=== PATIENT | female | born 1930 | race Caucasian/White ===

== ENCOUNTER 2016-04-28 11:48 | Inpatient (IN) ==
--- NOTE | 2016-04-28 12:00 | Emergency Department Note ---
Disposition Clinical Impression: Atrial fibrillation with RVR, NSTEMI (non-ST elevated myocardial infarction) UTI (urinary tract infection) Qualifiers: Urinary tract infection type: acute cystitis Hematuria presence: with hematuria Qualified Code(s): N30.01 - Acute cystitis with hematuria Disposition: Admitted As Inpatient Condition: Fair Time of Disposition: 15:17 Syncope HPI - General Chief Complaint: ED Fall Stated Complaint: fall Source: patient, EMS Mode of arrival: ambulatory Limitations: altered mental status Nursing Notes Reviewed: Yes Vital Signs Reviewed: Yes - History of Present Illness HPI Narrative: History source: Patient is unable to provide information for this note. Info was gathered from the patient, hospital staff, the patient's chart. History limitations: Patient condition Medications: As per nurses note 85-year-old female brought in by EMS after a fall at home. Patient was ambulating to the bathroom for a bowel movement when she became lightheaded and fell to the ground injuring her right shoulder and right knee. Patient is unable to give a history regarding her symptoms. Family was right outside the door, entered the room and did not find her to have loss of consciousness. She was calling for help. The son-in-law sat her on the toilet and she was having difficulty answering questions, felt significantly weak and fatigued. She was moving all extremities however it was difficult due to her weakness. No history of cardiac disease in the past. No history of stroke. Family members did not notice a specific deficit although they did notice swelling of the right facial area, right shoulder, right knee. - Related Data Home Medications Medication Instructions Recorded Confirmed Albuterol Sulfate [Proair Hfa] 2 puff IH Q4H PRN #0 12/02/14 04/28/16 Aspirin 81 mg PO DAILY #0 12/02/14 04/28/16 Citalopram [CeleXA] 20 mg PO DAILY #0 12/02/14 04/28/16 Diltiazem HCl [Cardizem LA] 180 mg PO DAILY #0 12/02/14 04/28/16 Fluticasone/Salmeterol [Advair 1 puff IH BID #0 12/02/14 04/28/16 500-50 Diskus] Furosemide [Lasix] 40 mg PO DAILY #0 12/02/14 04/28/16 Guaifenesin [Mucinex] 600 mg PO BID PRN #0 12/02/14 04/28/16 Levothyroxine [Synthroid] 50 mcg PO DAILY #0 12/02/14 04/28/16 Montelukast [Singulair] 10 mg PO DAILY #0 12/02/14 04/28/16 Omeprazole [PriLOSEC] 40 mg PO DAILY #0 12/02/14 04/28/16 Potassium Chloride [K-Tab ER] 20 meq PO DAILY #0 12/02/14 04/28/16 Tiotropium [Spiriva] 1 cap IH DAILY #0 12/02/14 04/28/16 Doxycycline Hyclate [Vibramycin] 100 mg PO BID 04/28/16 04/28/16 OxyCODONE/APAP 5/325 [Percocet 1 tab PO Q4HR PRN 04/28/16 04/28/16 5/325] PredniSONE 10 mg PO AD 04/28/16 04/28/16 Previous Rx's Medication Instructions Recorded Alprazolam [Xanax 0.5 MG Tablet] 0.5 mg PO TID PRN #30 tablet 12/12/14 Allergies Allergy/AdvReac Type Severity Reaction Status Date / Time Penicillins AdvReac See Verified 12/01/14 20:28 Comments Limitations: ROS unobtainable due to patients medical condition Past Medical History - Past Medical History Medical history: Reports: arthritis, atrial fibrillation, CHF, DVT, dementia, hypertension, other Surgical history: Reports: hysterectomy, other (varicose vein stripping, back surgery, laminectomy) Psychiatric history: Reports: other - Social History Smoking Status: Unknown if ever smoked Smokeless Tobacco Status: No Alcohol use: Reports: none Drug use: Reports: none Physical Exam General: Alert and in no acute distress Skin: Warm, dry, abrasion and contusion to the right shoulder and right lateral knee. Head: Normocephalic and atraumatic Neck: Supple, trachea midline and no tenderness Cardiovascular: RRR, no murmur, normal perfusion Respiratory: CTAB, no wheezing, cough, or respiratory distress Musculoskeletal: Normal strength, no tenderness, swelling or deformity GI: Soft, nontender, nondistended. Bowel sounds present Neuro: A&O to person, place, time and situation. No focal deficits noted on exam Psychiatric: cooperative and appropriate mood and affect. - General Limitations: no limitations General appearance: alert, in no apparent distress Course Vital Signs Temperature 98.5 F 04/28/16 11:54 Pulse Rate 118 04/28/16 11:54 Respiratory Rate 20 04/28/16 11:54 Blood Pressure 149/113 04/28/16 11:54 O2 Sat by Pulse Oximetry 95 04/28/16 11:54 Temperature 97.5 F L 04/28/16 17:01 Pulse Rate 100 04/28/16 18:51 Respiratory Rate 18 04/28/16 17:01 Blood Pressure 130/91 04/28/16 18:51 O2 Sat by Pulse Oximetry 99 04/28/16 18:16 Oxygen Delivery Oxygen Delivery Nasal Cannula Syncope - MDM Narrative Medical decision making narrative: Patient return of elevated troponin, and this is likely the reason for her lightheadedness, fall and fatigue. Patient also has a urinary tract infection which could be adding to her symptoms. Patient was started on heparin drip, given aspirin after a negative head CT. Patient was given ceftriaxone for treatment of urinary tract infection. She and the daughter state she does not have a allergy to penicillin. Diltiazem given for control of heart rate with an initial bolus of 10 mg and a Cardizem drip of 5 mg per hour titrating to affect. - Medical Records Medical records reviewed: Yes I reviewed the patient's medical records. - Lab Data Lab results reviewed: Yes I reviewed the patient's lab results. Result diagrams: 04/28/16 14:01 04/28/16 14:01 Lab Results 04/28/16 04/28/16 04/28/16 Range/Units 12:29 14:00 14:01 WBC 14.6 H (4.3-11.1) K/mcL RBC 5.42 H (3.82-4.97) M/mcL Hgb 14.5 (11.5-15.4) g/dL Hct 44.2 (35.3-44.9) % MCV 81.5 L (83.0-100.0) fL MCH 26.8 L (28.0-33.3) pg MCHC 32.8 (31.6-35.5) g/dL RDW 14.2 (11.5-14.5) % Plt Count 301 (140-400) K/mcL MPV 9.4 (9.4-12.4) fL Immature Gran % 1.2 (0-4) % Seg Neutrophils % 86.3 % Lymphocytes % 2.8 % Monocytes % 9.6 % Eosinophils % 0.0 % Basophils % 0.1 % Neutrophils # 12.6 H (1.6-8.9) K/mcL Lymphocytes # 0.4 L (0.6-4.6) K/mcL Monocytes # 1.4 H (0.0-1.3) K/mcL Eosinophils # 0.0 (0.0-0.6) K/mcL Basophils # 0.0 (0.0-0.2) K/mcL PT 10.4 (9.4-12.1) Seconds INR 1.0 APTT 25.0 L (26.0-36.0) Seconds Sodium (136-145) mEq/L Potassium (3.5-4.5) mEq/L Chloride (98-109) mEq/L Carbon Dioxide (19-29) mEq/L BUN (7-20) mg/dL Creatinine (0.57-1.11) mg/dL Est GFR ( Amer) (> 60) Est GFR (Non-Af Amer) (> 60) BUN/Creatinine Ratio (6-26) Glucose (70-99) mg/dL Calculated Osmolality (280-300) Calcium (8.6-10.8) mg/dL Total Bilirubin (0.2-1.2) mg/dL AST (5-34) Units/L ALT (0-55) Units/L Alkaline Phosphatase (38-126) Units/L Creatine Kinase (29-168) Units/L Troponin I (0-0.03) ng/mL Serum Total Protein (6.0-8.3) g/dL Albumin (3.5-5.0) g/dL Globulin (2.4-3.5) g/dL Albumin/Globulin Ratio (1.1-2.2) Urine Color Dark Yellow (Yellow) Urine Clarity Turbid A (Clear) Urine pH 8.5 H (5.0-8.0) pH Units Ur Specific [place] 1.017 (1.010-1.025) Urine Protein 100 H (Neg-Trace) mg/dL Urine Glucose (UA) Normal (Normal) mg/dL Urine Ketones Negative (Negative) mg/dL Urine Blood Large H (Negative) Urine Nitrite Positive A (Negative) Urine Bilirubin Negative (Negative) Urine Urobilinogen Normal (Normal) mg/dL Ur Leukocyte Esterase Large H (Negative) Urine Microscopic RBC TNTC H (0-3) per hpf Urine Microscopic WBC TNTC H (0-3) per hpf Ur Squamous Epith Cells Many H (None-Few) per lpf Calcium Oxalate Crystal Present Urine Bacteria Many H (None-Few) per hpf Hyaline Casts None Seen (None-Few) per lpf Ur Culture Indicated? YES A (NO) 04/28/16 04/28/16 Range/Units 14:01 14:01 WBC (4.3-11.1) K/mcL RBC (3.82-4.97) M/mcL Hgb (11.5-15.4) g/dL Hct (35.3-44.9) % MCV (83.0-100.0) fL MCH (28.0-33.3) pg MCHC (31.6-35.5) g/dL RDW (11.5-14.5) % Plt Count (140-400) K/mcL MPV (9.4-12.4) fL Immature Gran % (0-4) % Seg Neutrophils % % Lymphocytes % % Monocytes % % Eosinophils % % Basophils % % Neutrophils # (1.6-8.9) K/mcL Lymphocytes # (0.6-4.6) K/mcL Monocytes # (0.0-1.3) K/mcL Eosinophils # (0.0-0.6) K/mcL Basophils # (0.0-0.2) K/mcL PT (9.4-12.1) Seconds INR APTT (26.0-36.0) Seconds Sodium 136 (136-145) mEq/L Potassium 4.3 (3.5-4.5) mEq/L Chloride 98 (98-109) mEq/L Carbon Dioxide 24 (19-29) mEq/L BUN 29 H (7-20) mg/dL Creatinine 1.08 (0.57-1.11) mg/dL Est GFR ( Amer) 59 L (> 60) Est GFR (Non-Af Amer) 48 L (> 60) BUN/Creatinine Ratio 27 H (6-26) Glucose 205 H (70-99) mg/dL Calculated Osmolality 294 (280-300) Calcium 9.3 (8.6-10.8) mg/dL Total Bilirubin 1.0 (0.2-1.2) mg/dL AST 136 H (5-34) Units/L ALT 80 H (0-55) Units/L Alkaline Phosphatase 101 (38-126) Units/L Creatine Kinase 8961 H (29-168) Units/L Troponin I 1.81 H* (0-0.03) ng/mL Serum Total Protein 7.0 (6.0-8.3) g/dL Albumin 3.6 (3.5-5.0) g/dL Globulin 3.4 (2.4-3.5) g/dL Albumin/Globulin Ratio 1.1 (1.1-2.2) Urine Color (Yellow) Urine Clarity (Clear) Urine pH (5.0-8.0) pH Units Ur Specific [place] (1.010-1.025) Urine Protein (Neg-Trace) mg/dL Urine Glucose (UA) (Normal) mg/dL Urine Ketones (Negative) mg/dL Urine Blood (Negative) Urine Nitrite (Negative) Urine Bilirubin (Negative) Urine Urobilinogen (Normal) mg/dL Ur Leukocyte Esterase (Negative) Urine Microscopic RBC (0-3) per hpf Urine Microscopic WBC (0-3) per hpf Ur Squamous Epith Cells (None-Few) per lpf Calcium Oxalate Crystal Urine Bacteria (None-Few) per hpf Hyaline Casts (None-Few) per lpf Ur Culture Indicated? (NO) - Radiology Data Radiology results reviewed: Yes I reviewed the patient's radiology results. - EKG Data EKG attestation: Yes I reviewed and interpreted this EKG. EKG results narrative: ECG - interpreted by ED physician. Linda fib with RVR, no evidence of STEMI EKG #2 ECG - interpreted by ED physician. Mckeon fib with RVR
[2016-04-28 13:28] LABS: Bilirubin,Urine Negative (Negative); Blood,Urine Large (Negative); Clarity,Urine Turbid (Clear); Color,Urine Dark Yellow (Yellow); Glucose,Urine (UA) Normal (Normal); Ketones,Urine Negative (Negative); Leukocyte Esterase,Urine Large (Negative); Nitrite,Urine Positive (Negative); PH,Urine 8.5 pH Units (5.0-8.0); Protein,Urine 100 mg/dL (Neg-Trace); Specific Gravity,Urine 1.017 (1.010-1.025); Urobilinogen,Urine Normal (Normal)
[2016-04-28 13:29] LABS: Bacteria,Urine Many per hpf (None-Few); RBC,Urine TNTC per hpf (0-3); Squamous Epithelial Cell,Urine Many per lpf (None-Few); WBC,Urine TNTC per hpf (0-3)
[2016-04-28 13:38] LABS: Calcium Oxalate Crystals,Urine Present
[2016-04-28 13:39] LABS: Hyaline Casts,Urine None Seen per lpf (None-Few)
[2016-04-28 14:13] LABS: Basophils % 0.1 %; Hematocrit 44.2 % (35.3-44.9); Hemoglobin 14.5 g/dL (11.5-15.4); Immature Granulocytes % 1.2 % (0-4); Lymphocytes # 0.4 K/mcL (0.6-4.6); Lymphocytes % 2.8 %; Mean Corpuscular HGB Conc 32.8 g/dL (31.6-35.5); Mean Corpuscular Hemoglobin 26.8 pg (28.0-33.3); Mean Corpuscular Volume 81.5 fL (83.0-100.0); Mean Platelet Volume 9.4 fL (9.4-12.4); Monocytes # 1.4 K/mcL (0.0-1.3); Monocytes % 9.6 %; Neutrophils # 12.6 K/mcL (1.6-8.9); Platelet Count 301 K/mcL (140-400); Red Blood Count 5.42 M/mcL (3.82-4.97); Red Cell Distribution Width 14.2 % (11.5-14.5); Segmented Neutrophils % 86.3 %
[2016-04-28 14:23] LABS: Albumin 3.6 g/dL (3.5-5.0); Albumin/Globulin Ratio 1.1 (1.1-2.2); Calcium 9.3 mg/dL (8.6-10.8); Globulin 3.4 g/dL (2.4-3.5); Potassium 4.3 mEq/L (3.5-4.5)
[2016-04-28] MEDS ORDERED: Aspirin 81 MG TAB.CHEW PO ONE (15:05)
[2016-04-28] MEDS ORDERED: *HR* Heparin 5,000 UNIT/ML VIAL IVP PRN ×4 (15:05→17:45)
[2016-04-28] MEDS ORDERED: *HR* Heparin 5,000 UNIT/ML VIAL IVP ONE ×2 (15:05→17:45)
[2016-04-28] MEDS ORDERED: Heparin 25,000 UNIT/500 ML D5W 25,000 UNIT/500 ML MLS IVC SCH (15:15)
[2016-04-28] MEDS ORDERED: Ibuprofen 600 MG TABLET PO ONE (15:27)
[2016-04-28] MEDS ORDERED: Naloxone 0.4 MG/ML INJ IVP PRN (16:07)
[2016-04-28] MEDS ORDERED: Acetaminophen 325 MG TABLET PO PRN (16:07)
[2016-04-28] MEDS ORDERED: ALPRAZolam 0.5 MG TABLET PO PRN (16:10)
[2016-04-28 16:31] LABS: Prothrombin Time 10.4 Seconds (9.4-12.1)
--- NOTE | 2016-04-28 16:41 | Internal Med History&Physical ---
Date of Encounter: 04/28/16 Time of Encounter: 16:25 Assessment and Plan (1) Atrial fibrillation with RVR Current visit: Yes Status: Acute Continue diltiazem drip Will transition to oral Gentle IVF hydration 500cc bolus (2) Acute coronary syndrome Current visit: Yes Status: Acute Patient with known non-obstructive CAD, stress test in 2013 noted for no ischemia EKG with Afib with RVR Patient with dementia and denies chest pain , however, fall could have been due to sudden arrhythmia ON ASA at home, continue same Obtain ECHO Trend troponins Continue heparin drip at this time Per previous admission , family and cardiology had managed conservatively Cardiology consult (3) Rhabdomyolysis Current visit: Yes Status: Acute Patient with fall and multiple bruises No evidence of compartment syndrome Elevated creatinine above baseline, potassium and calcium WNL Elevated CK may also have been from [place] Gentle hydration, monitor CK, Monitor renal function Fall precautions Qualifiers: Rhabdomyolysis type: traumatic Encounter type: initial encounter Qualified Code(s): T79.6XXA - Traumatic ischemia of muscle, initial encounter (4) Fall Current visit: Yes Status: Acute PT/OT consult Fall precautions No intracranial bleed, no fractures Qualifiers: Encounter type: initial encounter Qualified Code(s): W19.XXXA - Unspecified fall, initial encounter (5) Hypothyroidism Current visit: Yes Status: Chronic Check TSH a.m Resume synthroid a.m Qualifiers: Hypothyroidism type: unspecified Qualified Code(s): E03.9 - Hypothyroidism , unspecified (6) CHF (congestive heart failure) Current visit: Yes Status: Chronic No current evidence of fluid overload, no edema, no pulmonary vascular congestion Resume home dsoe of lasix. Rpt ECHO, rest of mgt as in ACS management Qualifiers: Congestive heart failure type: diastolic Congestive heart failure chronicity: chronic Qualified Code(s): I50.32 - Chronic diastolic (congestive ) heart failure (7) Dementia Current visit: Yes Status: Chronic Qualifiers: Dementia type: unspecified type Dementia behavioral disturbance: without behavioral disturbance Qualified Code(s): F03.90 - Unspecified dementia without behavioral disturbance (8) Hypertension Current visit: Yes Status: Chronic Qualifiers: Hypertension type: essential hypertension Qualified Code(s): I10 - Essential (primary) hypertension (9) UTI (urinary tract infection) Current visit: Yes Status: Acute Follow urine culture Continue ceftriaxone Qualifiers: Urinary tract infection type: acute cystitis Hematuria presence: with hematuria Qualified Code(s): N30.01 - Acute cystitis with hematuria Internal Medicine - H&P: HPI Chief complaint: Fall Admitted From: Home Plans for Post Hospital Care: Home History of present illness: Ms. Tinajero is a 85 year old female Patient is seen at bedside Patient has dementia and is unable to provide adequate history History obtained from the [id number] who is at the bedside She is a 85-year-old female presents medical history of hypertension, diastolic CHF, atrial fibrillation not on anticoagulation due to multiple falls, hypothyroidism, COPD and dementia Patient was in her usual state of health until Wednesday when she acted more confused, family members took her to PCP. During that visit it was determined that she has a urinary tract infection and bronchitis and she was started on doxycycline by mouth. Patient was in the bathroom this morning by herself and had a fall. She was found to have some on the floor in the past from patient does not recall any of these events. As per [id number] patient denied any symptoms throughout full. Patient has a history of atrial fibrillation and prior to Tylenol primary care physician had discontinued rate control medication about a month ago the last time she took a heart rate control medication was in February 2016. At time of review patient denies any active symptoms. In previous admissions patient was [id number]. [id number] describes no change in advance directives status. Patient had an episode of diaphoresis in the ER, with heart rates in the 140s in the ER. Workup revealed elevated leukocytosis with left shift, slight elevation in BUN/ Creatinine, transaminitis, troponins at 1.81, CK 8651, EKG with A. fib with RVR ventricular rate 140, UA-UTI. Patient has been started on heparin drip and diltiazem drip. Screen for fractures including tibia and fibula x-ray, knee x- ray, Head CT, cervical spine CT is unremarkable for fractures. Chest x-ray revealed cardiomegaly with right lung scar. No pulmonary vascular congestion. Past Med Surg Social Fam HX - Past Medical History Medical history: arthritis, atrial fibrillation, CHF, DVT, dementia, hypertension, other Psychiatric history: other - Past Surgical History Surgical History: hysterectomy, other (varicose vein stripping, back surgery, laminectomy) - Social History Smoking Status: Unknown if ever smoked Smokeless Tobacco Status: No Alcohol use: none Drug use: none - Family History Father Living Status: Hx Family Cancer: Yes (colon cancer) Daughter Hx Family Autoimmune Disorders: Yes (Lupus) Internal Medicine - H&P: Meds Albuterol Sulfate [Proair Hfa] 2 puff IH Q4H PRN #0 12/02/14 [History] Aspirin 81 mg PO DAILY #0 12/02/14 [History] Citalopram [CeleXA] 20 mg PO DAILY #0 12/02/14 [History] Diltiazem HCl [Cardizem LA] 180 mg PO DAILY #0 12/02/14 [History] Fluticasone/Salmeterol [Advair 500-50 Diskus] 1 puff IH BID #0 12/02/14 [ History] Furosemide [Lasix] 40 mg PO DAILY #0 12/02/14 [History] Guaifenesin [Mucinex] 600 mg PO BID PRN #0 12/02/14 [History] Levothyroxine [Synthroid] 50 mcg PO DAILY #0 12/02/14 [History] Montelukast [Singulair] 10 mg PO DAILY #0 12/02/14 [History] Omeprazole [PriLOSEC] 40 mg PO DAILY #0 12/02/14 [History] Potassium Chloride [K-Tab ER] 20 meq PO DAILY #0 12/02/14 [History] Tiotropium [Spiriva] 1 cap IH DAILY #0 12/02/14 [History] Alprazolam [Xanax 0.5 MG Tablet] 0.5 mg PO TID PRN #30 tablet 12/12/14 [Rx] Doxycycline Hyclate [Vibramycin] 100 mg PO BID 04/28/16 [History] OxyCODONE/APAP 5/325 [Percocet 5/325] 1 tab PO Q4HR PRN 04/28/16 [History] PredniSONE 10 mg PO AD 04/28/16 [History] Allergies Penicillins Adverse Reaction (Verified 12/01/14 20:28) See Comments ROS unobtainable: due to mental status All Systems PM: A 10-system review of systems was performed and is negative for pertinent findings except as documented above in the HPI. - Constitutional Vitals: Temp Pulse Resp BP Pulse Ox 97.8 F 104 20 134/82 94 L 04/28/16 15:39 04/28/16 16:30 04/28/16 16:30 04/28/16 16:30 04/28/16 16:30 General appearance: Present: A&O X 3, pleasant, no acute distress - Head Head exam: Present: atraumatic - Eye Eye exam: Present: PERRL, conjuntiva pink, sclera anicteric - ENT ENT exam: Present: mucous membranes moist - Neck Additional comments: right neck region with small ~4cm diameter bruise - Respiratory Respiratory exam: Present: CTAB. Absent: rales, rhonchi, wheezes, tachypnea - Cardiovascular Cardiovascular exam: Present: irregular rhythm, +S1, +S2, tachycardia - GI/Abdominal GI/Abdominal exam: Present: normal bowel sounds, soft, no peritoneal signs. Absent: mass, tenderness - Extremities Exam Additional comments: All extremities are soft with no compartment syndrome Right knee with large bruise, ~10-15cm in widest diameter, Left wrist region and Right shoulder also with bruise No pedal edema - Neurological Exam Neurological exam: Present: alert, oriented X3, no focal deficits. Absent: pronater drift, facial droop, speech deficit - Skin Skin exam: Present: abrasion Internal Med - H&P Results - Labs CBC & Chem 7: 04/28/16 14:01 04/28/16 14:01
[2016-04-28] MEDS: Heparin 25,000 UNIT/500 ML D5W 25,000 UNIT/500 ML MLS IVC SCH (17:54)
[2016-04-28] MEDS: *HR* HYDROcodone/Acet 5/325 mg TABLET PO PRN (18:01)
[2016-04-28] MEDS: Budesonide/Formoterol 160/4.5 MDI IH SCH (22:52)
[2016-04-29 01:37] LABS: Basophils % 0.1 %; Hematocrit 46.1 % (35.3-44.9); Hemoglobin 15.2 g/dL (11.5-15.4); Immature Granulocytes % 1.4 % (0-4); Lymphocytes # 0.4 K/mcL (0.6-4.6); Lymphocytes % 3.6 %; Mean Corpuscular Volume 81.7 fL (83.0-100.0); Mean Platelet Volume 9.5 fL (9.4-12.4); Monocytes # 1.2 K/mcL (0.0-1.3); Monocytes % 9.5 %; Neutrophils # 10.4 K/mcL (1.6-8.9); Platelet Count 296 K/mcL (140-400); Red Blood Count 5.64 M/mcL (3.82-4.97); Red Cell Distribution Width 14.3 % (11.5-14.5); Segmented Neutrophils % 85.4 %
[2016-04-29 01:50] LABS: BUN/Creatinine Ratio 24 (6-26); Blood Urea Nitrogen 24 mg/dL (7-20); Calcium 9.2 mg/dL (8.6-10.8); Carbon Dioxide 27 mEq/L (19-29); Chloride 96 mEq/L (98-109); Glucose 175 mg/dL (70-99); Osmolality,Calculated 286 (280-300); Potassium 4.3 mEq/L (3.5-4.5); Sodium 134 mEq/L (136-145); eGFR For African Americans > 60 (> 60); eGFR For Non-African Americans 52 (> 60)
[2016-04-29] MEDS: *HR* HYDROcodone/Acet 5/325 mg TABLET PO PRN ×2 (03:38→10:08)
[2016-04-29] MEDS: Furosemide 40 MG TABLET PO SCH (10:02)
[2016-04-29] MEDS: Aspirin 81 MG TAB.CHEW PO SCH (10:02)
--- NOTE | 2016-04-29 10:26 | Cardiology Consult Note ---
Date of Encounter: 04/29/16 Time of Encounter: 10:22 Assessment and Plan (1) Elevated troponin Current Visit: Yes Status: Acute Elevated troponin 1.81, 1.57, 1.65 in setting of A-Fib with RVR, UTI, suspected rhabdomyolysis, s/p fall. Demand ischemia vs. NSTEMI. Recommend heparin gtt x 24-48 hours. Pt denies any active chest pain--reports occasional sharp midsternal pain that is not associated on exertion. Chest wall tenderness noted on palpation--likely musculoskeletal s/p fall. Echo pending. Prior echo 11/2014 EF was preserved 70%--hyperdynamic. Pt is DNR-CCA--discussed with pt and granddaughter. They do not wish to have any invasive procedures. Medical management. No statin in setting of suspected rhabdo, currently not on BB--being rate controlled on CCB. BB was stopped 02/2016 for bradycardia and fatigue. Recommend ASA 81mg daily. (2) Atrial fibrillation with RVR Current Visit: Yes Status: Acute Currently on Cardizem gtt 5mg/hr. HR at bedside 90s-low 100s. 12 hour tele AVG HR 99. Will transition to PO Cardizem CD 180mg daily. RVR in setting of UTI. CHADSVASC 5 (Age, Female, HTN, Diastolic CHF). ASA only due to frequent falls. Discussion w patient/family: The assessment and plan as outlined above was discussed with the patient and/or family members who expressed understanding and agreement. All questions were answered. Thank you for involving us in the care of your patient. Please call with any questions. I will discuss all the above with Dr. Lin and make changes as necessary. History of Present Illness Consult date: 04/29/16 Requesting physician: Rakesh Gardner Consult reason: elevated troponin Chief complaint: fall, dizziness History of present illness: Ms. Tinajero is a 85 year old female with PMH of hypertension, diastolic CHF, atrial fibrillation not on anticoagulation due to multiple falls, hypothyroidism , COPD and dementia. On Wednesday she was acting more confused and family members took her to PCP. During that visit it was determined that she has a urinary tract infection and bronchitis and she was started on doxycycline by mouth. Patient was in the bathroom yesterday morning by herself and had a fall, fell on the floor. Patient does not recall any of these events other than maybe feeling a little dizzy beforehand. PCP discontinued BB in February 2016 for fatigue and bradycardia, but has been on CCB. Pt found to be in A-Fib with RVR in ED, rate 140s, started on Cardizem gtt, troponins elevated peak 1.81, CK 8651. Patient was started on heparin drip and diltiazem drip. Screen for fractures including tibia and fibula x-ray, knee x-ray, Head CT, cervical spine CT is unremarkable for fractures. Chest x-ray revealed cardiomegaly with right lung scar. No pulmonary vascular congestion. Pt reports an occasional sharp chest pain not associated with exertion. Denies any worsening dyspnea. Past Med Surg Social Fam HX - Past Medical History Medical history: arthritis, atrial fibrillation, CHF, DVT, dementia, hypertension, other Psychiatric history: other - Past Surgical History Surgical History: hysterectomy, other (varicose vein stripping, back surgery, laminectomy) - Social History Smoking Status: Unknown if ever smoked Smokeless Tobacco Status: No Alcohol use: none Drug use: none - Family History Father Living Status: Hx Family Cancer: Yes (colon cancer) Daughter Hx Family Autoimmune Disorders: Yes (Lupus) Medications and Allergies Albuterol Sulfate [Proair Hfa] 2 puff IH Q4H PRN #0 12/02/14 [History] Aspirin 81 mg PO DAILY #0 12/02/14 [History] Citalopram [CeleXA] 20 mg PO DAILY #0 12/02/14 [History] Diltiazem HCl [Cardizem LA] 180 mg PO DAILY #0 12/02/14 [History] Fluticasone/Salmeterol [Advair 500-50 Diskus] 1 puff IH BID #0 12/02/14 [ History] Furosemide [Lasix] 40 mg PO DAILY #0 12/02/14 [History] Guaifenesin [Mucinex] 600 mg PO BID PRN #0 12/02/14 [History] Levothyroxine [Synthroid] 50 mcg PO DAILY #0 12/02/14 [History] Montelukast [Singulair] 10 mg PO DAILY #0 12/02/14 [History] Omeprazole [PriLOSEC] 40 mg PO DAILY #0 08/23/15 [History] Potassium Chloride [K-Tab ER] 20 meq PO DAILY #0 12/02/14 [History] Tiotropium [Spiriva] 1 cap IH DAILY #0 12/02/14 [History] Alprazolam [Xanax 0.5 MG Tablet] 0.5 mg PO TID PRN #30 tablet 12/12/14 [Rx] Doxycycline Hyclate [Vibramycin] 100 mg PO BID 04/28/16 [History] OxyCODONE/APAP 5/325 [Percocet 5/325] 1 tab PO Q4HR PRN 04/28/16 [History] PredniSONE 10 mg PO AD 04/28/16 [History] Allergies Penicillins Adverse Reaction (Verified 12/01/14 20:28) See Comments All Systems Review: A 10-system review of systems was performed and is negative for pertinent findings except as documented above in the HPI. - Cardiovascular Cardiovascular: as per HPI, chest pain at rest, rapid heart rate - Neurological Neurological: dizziness Physical Examination Vital Signs, Last 4 Hours Temp Pulse Resp BP Pulse Ox 04/29/16 08:00 98.3 F 92 24 109/78 100 Vital Signs Temp Pulse Resp BP Pulse Ox 04/29/16 08:00 98.3 F 92 24 109/78 100 04/29/16 04:19 100.7 F H 04/29/16 03:32 97.9 F 95 16 130/92 99 04/29/16 01:05 97.4 F L 95 14 133/82 99 04/28/16 22:55 20 95 04/28/16 21:47 98 137/92 04/28/16 21:38 97.8 F 88 17 108/83 96 04/28/16 18:51 100 130/91 04/28/16 18:34 96 114/96 04/28/16 18:16 99 04/28/16 17:01 97.5 F L 105 18 131/93 100 04/28/16 16:31 97.8 F 20 134/82 04/28/16 16:30 104 20 134/82 94 L 04/28/16 15:45 95 20 130/85 96 04/28/16 15:39 97.8 F 109 20 123/85 96 04/28/16 15:16 130 18 158/95 95 04/28/16 13:57 114 20 158/95 95 04/28/16 12:59 124 22 141/105 96 04/28/16 11:54 98.5 F 118 20 149/113 95 Intake and Output 04/28/16 04/29/16 04/29/16 23:59 07:59 15:59 Intake Total 100 / 100 125 / 125 0 / 0 Output Total 700 / 700 200 / 200 Balance -600 / -600 -75 / -75 0 / 0 Intake: IV Fluids 100 / 100 125 / 125 0 / 0 Heparin 25,000 UNIT/500 125 / 125 0 / 0 ML D5W 25,000 unit In 500 ml @ 12 UNIT/KG/HR 13. 992 mls/hr IVC .Q24H [facility] Rx#:[id number] Rocephin 1,000 MG In 100 / 100 Dextrose 5% (Minibag+) 100 ML 100 ML @ 200 mls/ hr IVPB ONCE ONE Rx#: [id number] Oral 0 / 0 Output: Catheter 700 / 700 200 / 200 Other: Stool Size Moderate Stool Consistency soft Stool Color Brown Weight 58.3 kg Blood Glucose* 147 General: Conversant, No Apparent Distress HEENT: Atraumatic, Normocephaly, Mucus Membranes Moist Neck: No JVD, Normal carotid pulses Cardiac: Other (irregularly irregular) Lungs: Normal Breath Sounds, No Wheeze, Rales, Rhonchi Neuro: Alert and responsive, No focal deficits noted Abdomen: Soft, Non-Tender Skin: No rashes noted on visualized skin Musculoskeletal: No Chest Wall Tenderness Extremities: No Clubbing, No Cyanosis, No Edema, Normal Pulses Results 04/29/16 01:24 04/29/16 01:24 Lab Results 04/28/16 04/29/16 04/29/16 20:56 01:24 01:24 WBC 12.1 H Hgb 15.2 Hct 46.1 H Plt Count 296 APTT Sodium Potassium Chloride Carbon Dioxide BUN Creatinine Glucose Calcium Troponin I 1.57 H* 1.65 H* TSH 04/29/16 04/29/16 04/29/16 01:24 01:24 01:24 WBC Hgb Hct Plt Count APTT 46.8 H D Sodium 134 L Potassium 4.3 Chloride 96 L Carbon Dioxide 27 BUN 24 H Creatinine 1.01 Glucose 175 H Calcium 9.2 Troponin I TSH 0.496 04/29/16 08:59 WBC Hgb Hct Plt Count APTT 62.0 H Sodium Potassium Chloride Carbon Dioxide BUN Creatinine Glucose Calcium Troponin I TSH Short CBC 04/29/16 04/28/16 Range/Units 01:24 14:01 WBC 12.1 H 14.6 H (4.3-11.1) K/mcL Hgb 15.2 14.5 (11.5-15.4) g/dL Hct 46.1 H 44.2 (35.3-44.9) % Plt Count 296 301 (140-400) K/mcL Neutrophils # 10.4 H 12.6 H (1.6-8.9) K/mcL BMP 04/29/16 04/28/16 Range/Units 01:24 14:01 Sodium 134 L 136 (136-145) mEq/L Potassium 4.3 4.3 (3.5-4.5) mEq/L Chloride 96 L 98 (98-109) mEq/L Carbon Dioxide 27 24 (19-29) mEq/L BUN 24 H 29 H (7-20) mg/dL Creatinine 1.01 1.08 (0.57-1.11) mg/dL Glucose 175 H 205 H (70-99) mg/dL Calcium 9.2 9.3 (8.6-10.8) mg/dL Cardiac Enzymes 04/29/16 04/28/16 04/28/16 Range/Units 01:24 20:56 14:01 Troponin I 1.65 H* 1.57 H* 1.81 H* (0-0.03) ng/mL Liver Function 04/28/16 Range/Units 14:01 Total Bilirubin 1.0 (0.2-1.2) mg/dL AST 136 H (5-34) Units/L ALT 80 H (0-55) Units/L Alkaline Phosphatase 101 (38-126) Units/L Albumin 3.6 (3.5-5.0) g/dL Urine 04/28/16 Range/Units 12:29 Urine Color Dark Yellow (Yellow) Urine Clarity Turbid A (Clear) Urine pH 8.5 H (5.0-8.0) pH Units Ur Specific [place] 1.017 (1.010-1.025) Urine Protein 100 H (Neg-Trace) mg/dL Urine Glucose (UA) Normal (Normal) mg/dL Impressions Chest X-Ray 04/28/16 12:25 IMPRESSION: Cardiomegaly with scarring or atelectasis in the medial right lung base D/ / Ty Bui MD / Ty Bui MD Interpreting Provider: Ty Bui MD Cervical Spine CT 04/28/16 12:51 IMPRESSION: No acute intracranial abnormality. No acute osseous abnormality in the cervical spine No acute osseous abnormality in the maxillofacial bones Sinus disease D/ / Osman Tronocso MD / Osman Troncoso MD Interpreting Provider: Osman Troncoso MD Head CT 04/28/16 12:51 IMPRESSION: No acute intracranial abnormality. No acute osseous abnormality in the cervical spine No acute osseous abnormality in the maxillofacial bones Sinus disease D/ / Osman Troncoso MD / Osman Troncoso MD Interpreting Provider: Osman Troncoso MD Pelvis X-Ray 04/28/16 12:51 IMPRESSION: No evidence of fracture D/ / Ty Bui MD / Ty Bui MD Interpreting Provider: Ty Bui MD Face CT 04/28/16 13:16 IMPRESSION: No acute intracranial abnormality. No acute osseous abnormality in the cervical spine No acute osseous abnormality in the maxillofacial bones Sinus disease D/ / Osman Troncoso MD / Osman Troncoso MD Interpreting Provider: Osman Troncoso MD Knee X-Ray 04/28/16 13:16 IMPRESSION: No evidence of fracture. Small joint effusion may indicate an internal derangement. 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 Osteopenia. No acute osseous abnormality of the right shoulder. 2. Moderate degenerative changes of the glenohumeral joint. 3. Calcific tendinitis of the rotator cuff. D/ / Cecilio Torres MD / Cecilio Torres MD Interpreting Provider: Cecilio Torres MD Tibia/Fibula X-Ray 04/28/16 13:16 IMPRESSION: No acute osseous abnormality of the right tibia-fibula. D/ / Orlando Stuart MD / Orlando Stuart MD Interpreting Provider: Orlando Stuart MD Active Medications Acetaminophen (Tylenol) 650 mg PO Q6HR PRN PRN Reason: Mild Pain (1-3) Stop: 10/28/16 16:08 Acetaminophen/Hydrocodone Bitart ([place]enton 5-325 Mg) 1 tab PO Q4HR PRN PRN Reason: Moderate Pain (4-6) Stop: 10/28/16 16:08 Last Admin: 04/29/16 10:08 Dose: 1 tab Alprazolam (Xanax) 0.5 mg PO TID PRN; Protocol PRN Reason: Anxiety Stop: 10/28/16 16:11 Aspirin (Aspirin) 81 mg PO DAILY [facility] Stop: 10/29/16 09:01 Last Admin: 04/29/16 10:02 Dose: 81 mg Budesonide/Formoterol Fumarate (Symbicort) 2 puff IH BIDR [facility] Stop: 10/28/16 22:01 Last Admin: 04/28/16 22:52 Dose: 2 puff Citalopram Hydrobromide (Celexa) 20 mg PO DAILY [facility] Stop: 10/29/16 09:01 Last Admin: 04/29/16 10:02 Dose: 20 mg Furosemide (Lasix) 40 mg PO DAILY [facility] Stop: 10/29/16 09:01 Last Admin: 04/29/16 10:02 Dose: 40 mg Heparin Sodium (Porcine) (Heparin) 3,500 unit 60 unit/kg (3500 unit) IVP Q6HR PRN PRN Reason: SEE COMMENTS Stop: 10/28/16 17:46 Heparin Sodium (Porcine) (Heparin) 1,700 unit 30 unit/kg (1700 unit) IVP Q6H PRN PRN Reason: SEE COMMENTS Stop: 10/28/16 17:46 Last Admin: 04/29/16 03:21 Dose: 1,700 unit Diltiazem HCl 125 mg/ Dextrose 125 mls @ 5 mls/hr IVC .Q24H [facility] PRN Reason: 5 MG/HR Stop: 10/28/16 15:31 Last Admin: 04/28/16 16:28 Dose: 5 mg/hr, 5 mls/hr Ceftriaxone Sodium 1,000 mg/ (Dextrose) 100 mls @ 200 mls/hr IVPB DAILY [facility] Stop: 10/29/16 09:01 Heparin Sodium/Dextrose (Heparin 25,000 Unit/500 Ml D5w) 25,000 unit in 500 mls @ 13.992 mls/hr IVC .Q24H [facility]; 12 UNIT/KG/HR PRN Reason: Protocol Stop: 10/28/16 17:46 Last Titration: 04/29/16 10:10 Dose: 13.63 unit/kg/hr, 15.9 mls/hr Levothyroxine Sodium (Synthroid) 50 mcg PO DAILY [facility] Stop: 10/29/16 09:01 Last Admin: 04/29/16 10:02 Dose: 50 mcg Montelukast Sodium (Singulair) 10 mg PO DAILY [facility] Stop: 10/29/16 09:01 Last Admin: 04/29/16 10:02 Dose: 10 mg Morphine Sulfate (Morphine Sulfate) 2 mg IVP Q4HR PRN PRN Reason: Severe Pain (7-10) Stop: 10/28/16 16:08 Naloxone HCl (Narcan) 0.4 mg IVP Q2MIN PRN PRN Reason: Opioid Reversal Stop: 10/28/16 16:08 Omeprazole (Prilosec) 40 mg PO DAILY [facility] Stop: 10/29/16 09:01 Last Admin: 04/29/16 10:02 Dose: 40 mg Ondansetron HCl (Zofran) 4 mg IVP Q8HR PRN PRN Reason: Nausea And Vomiting Stop: 10/28/16 16:08 Potassium Chloride (Potassium Chloride) 20 meq PO DAILY [facility] Stop: 10/29/16 09:01 Last Admin: 04/29/16 10:02 Dose: 20 meq Tiotropium [place] (Spiriva) 18 mcg IH DAILY [facility] PRN Reason: Protocol Stop: 10/29/16 09:01 - Imaging and Cardiology Echo: report reviewed (11/2014 EF 70%, severely dilated left atrium, moderately dilated right atrium, mild TR, mild-mod phtn.) - EKG Interpretation EKG results cardiology: personally reviewed (A-Fib RVR rate 140), other (12 hour tele AVG HR 99, A-Fib) Consult Discharge Plan - Plan Referrals: Raphael Galan Jr, MD [Primary Care Provider] -
--- NOTE | 2016-04-29 11:03 | Electrocardiograph Report ---
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
[2016-04-29] MEDS: Budesonide/Formoterol 160/4.5 MDI IH SCH ×2 (11:05→20:57)
[2016-04-29] MEDS: Tiotropium 18 MCG inhalation IH SCH (11:05)
--- NOTE | 2016-04-29 11:36 | ECHO - Doppler Report ---
Echocardiogram Name: Rubi Tinajero Date of Study: 04/28/2016 Date: 1930 Ht: 62.0 in Medical Record#: [id number] Age: 85 Wt: 149.0 lb Gender: Female BSA: 1.69 Order #: [id number] Location: [facility] Room #: 2NE25 Reading Physician: Leigha Blair DO Produce Field Merchandiser: Sridevi Smith Ordering Physician: Rakesh Gardner MD Primary Physician: Raphael Galan MD Indications: AFIB w/RVR, r/o NSTEMI Impressions: LVEF 50-55%. LV systolic dysfunction with regional variations. Indeterminate diastolic function. Normal right ventricular size and function. Moderate to severe, eccentric tricuspid regurgitation with possible mild prolapsing of the anterior leaflet. Mild mitral regurgitation. Mild aortic regurgitation. Mild to moderate pulmonary hypertension. The IVC is not dilated. Left Ventricular Wall Motion: Rest Echo Findings The apical inferior, mid anterior septal and mid inferior lateral herbert were hypokinetic. The apex and apical anterior herbert were not visualized. All other wall segments showed normal motion. Findings: Study Quality * Technically sub-optimal due to clinical status. Patient supine during exam. ECG Findings * Atrial fibrillation. Aortic Valve * Aortic valve not well visualized. * Mildly calcified aortic valve leaflets. * No aortic stenosis. * Mild aortic regurgitation. Tricuspid Valve * Possible mild prolapsing of the anterior leaflet. Image #48 * Moderate to severe eccentric tricuspid regurgitation. * Estimated RA pressure is 3 mmHg. * Estimated RVSP is 47 mmHg. * Mild to moderate pulmonary hypertension. Pulmonic Valve * Pulmonic valve is not well visualized. * No pulmonic stenosis. * Trace pulmonic regurgitation. Pulmonary Artery * Pulmonary artery not well visualized. Right Atrium * Moderately dilated right atrium. Mitral Valve * Mild mitral regurgitation. * Mildly calcified mitral valve leaflets. * No mitral stenosis. Left Ventricle * Indeterminate diastolic function. * Normal LV chamber size, wall thickness and function. * LVEF 50-55%. Right Ventricle * Normal right ventricular structure and function. Left Atrium * Severely dilated left atrium. IVC * The IVC is not dilated. Interatrial Septum * Interatrial septum not well evaluated. Pericardium * There is a small pericardial effusion present. Aorta * Normally sized aortic root. History Hypertension Myocardial Infarction 12/03/2014 a Previous Echo was performed. Measurements: BP: 130/ 85 2D Normal Values IVSd: 1.10 cm 0.6 - 1.0 cm LVIDd: 3.90 cm 3.7 - 5.6 cm LVPWd: .90 cm 0.6 - 1.1 cm LVIDs: 2.60 cm 1.5 - 3.6 cm %FS: 33.30 cm >25 % LA volume: 52 Mitral Valve Peak E:.68 m/sec Peak E' Lat Amadeo:5.26 cm/s Peak E' Med Amadeo:2.83 cm/s E/E' Lat Ratio:12.9 E/E' Med Ratio:24.1 Tricuspid Valve TV Regurg Peak Grad: 44.00mmHg TV Regurg Peak Amadeo: 3.33m/sec Updated by Leigha Blair on 04/29/2016 11:28:20 AM electronically signed on 04/29/2016 11:31:48 AM with status of Final Wall Motion Allen: 1=Normal, 2=Hypokinesis, 3=Akinesis, 4=Dyskinesis, 5=Aneurysmal, 6=Hyperkinetic, X=Not Visualized (Blank)=Missing
[2016-04-29] MEDS: Diltiazem CD (24hr) 180 MG CAPSULE PO SCH (11:47)
--- NOTE | 2016-04-29 13:12 | Electrocardiograph Report ---
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
[2016-04-29] MEDS: *HR* Morphine 2 MG/ML SYRINGE IVP PRN (13:50)
[2016-04-29] MEDS: *HR* OxyCODONE/APAP 5/325 TABLET PO PRN ×2 (14:43→20:58)
[2016-04-29] MEDS ORDERED: DILTIAZEM HCL 180 MG PO SCH (16:10)
[2016-04-29] MEDS ORDERED: *HR* Metoprolol 5 MG/5 ML VIAL IVP ONE (16:13)
--- NOTE | 2016-04-29 16:38 | Internal Med Progress Note ---
<Sam Mcmullen - Last Filed: 04/29/16 16:33> Date of Encounter: 04/29/16 Time of Encounter: 09:30 - Assessment and plan (1) Fall Current Visit: Yes Status: Acute Assessment and plan: Patient is an elderly female who is supposed to be using her walker or cane at home but has poor compliance. She has underlying dementia and currently lives alone with frequent checkup by family members. She was found down after a mechanical fall in her bathroom for unknown length of time. Patient is found to have atrial fibrillation with RVR, urinary tract infection and NSTEMI. Family member states that the patient has had increased confusion over the last week. Her fall is likely secondary to urinary tract infection and associated atrial fibrillation with RVR and NSTEMI. - Multiple x-ray studies were reviewed without knee findings of osseous fractures. Plan: -Patient currently on fall precautions - CT of the head was evaluated which was a poor study but no signs of acute intracranial bleed or midline shift. - Patient will likely need social service agency director evaluation for rehabilitation placement - PT/OT evaluation Qualifiers: Encounter type: initial encounter Qualified Code(s): W19.XXXA - Unspecified fall, initial encounter (2) NSTEMI (non-ST elevated myocardial infarction) Current Visit: Yes Status: Acute Assessment and plan: Patient was found to have elevated troponins 1.8-1.53 and known coronary artery disease. Patient was started on heparin IV. The patient is without left -sided chest pain, chest pressure or pain radiation. EKGs reviewed. Cardiology was consult to evaluate the patient recommending medical management at this time. Plan: - Continue heparin IV for total 48 hours - Continue aspirin, statin, beta shruthi to maximize cardiac therapy. (3) Elevated troponin Current Visit: Yes Status: Acute Assessment and plan: Elevated troponins from 1.8-1.5. Previous troponins do not show a trend of elevation. Cardiology was consulted and has evaluated the patient. Plan as above. (4) Atrial fibrillation with RVR Current Visit: Yes Status: Acute Assessment and plan: The patient is a known history of atrial fibrillation for which she takes diltiazem LA 180 mg by mouth daily. Patient was admitted with atrial fibrillation RVR likely exacerbation of atrial fibrillation secondary to urinary tract infection. She is currently on home dose of Cardizem and treating underlying medical conditions. Heart rate is currently controlled. Plan: - Continue Cardizem CD 180 mg by mouth daily. - Continue cardiac monitoring. - Patient is not on warfarin therapy at home likely secondary to risk of fall. Currently patient is on heparin IV for NSTEMI. (5) Rhabdomyolysis Current Visit: Yes Status: Acute Assessment and plan: Patient has elevated CK at the time of admission with preserved renal function. Elevated creatinine kinase likely secondary to fall at home. Plan: - Continue to monitor renal function. -Gentle rehydration in an elderly patient. Qualifiers: Rhabdomyolysis type: traumatic Encounter type: initial encounter Qualified Code(s): T79.6XXA - Traumatic ischemia of muscle, initial encounter (6) UTI (urinary tract infection) Current Visit: Yes Status: Acute Assessment and plan: Patient found to have urinary tract infection currently on ceftriaxone. Patient had increased confusion at home, mechanical fall and rapid ventricular rates. Plan: - Continue ceftriaxone for treatment of UTI. -Culture pending Qualifiers: Urinary tract infection type: acute cystitis Hematuria presence: with hematuria Qualified Code(s): N30.01 - Acute cystitis with hematuria (7) Dementia Current Visit: Yes Status: Chronic Assessment and plan: Patient has underlying dementia with increased confusion prior to admission. Continue to monitor mental status. Qualifiers: Dementia type: unspecified type Dementia behavioral disturbance: without behavioral disturbance Qualified Code(s): F03.90 - Unspecified dementia without behavioral disturbance (8) Hypothyroidism Current Visit: Yes Status: Chronic Assessment and plan: Patient has known hypothyroidism, continue home dose of 50 mcg by mouth daily levothyroxine Qualifiers: Hypothyroidism type: unspecified Qualified Code(s): E03.9 - Hypothyroidism , unspecified (9) DVT prophylaxis Current Visit: No Status: Acute Assessment and plan: Patiently currently on IV heparin. - Subjective Interval history: Mrs. Tinajero 85-year-old female has been seen and evaluated patient bedside. She is alert and interactive in no acute distress. Her daughters at bedside, to provide support and assist in patient history. Patient says that she is still having pain in her right shoulder and right lower extremity status post fall at home. She said that she nearly passed out when she fell at home and a tiny space but is not clear and the events leading up or after. She does have a history of dementia which is provided by her daughter. She denies any headaches since that she has some mild blurry vision but is unsure if this is new. She says she did have by mouth intake today and that her catheter is irritating. She denies any nausea or vomiting, diarrhea or constipation, chest pain or palpitations. She has pain when she tries to move her right shoulder since the fall. She is able to move her right hand and forearm with limited motion of the right shoulder retains sensation and movement in her right distal upper extremity. - Constitutional Vitals: Temp Pulse Resp BP Pulse Ox 97.4 F L 102 16 125/66 97 04/29/16 15:00 04/29/16 15:00 04/29/16 15:00 04/29/16 15:00 04/29/16 15:00 General appearance: Present: A&O X 3, pleasant, no acute distress - Head Head exam: Present: atraumatic, normocephalic - Eye Eye exam: Present: EOMI, PERRL - ENT ENT exam: Present: mucous membranes moist - Neck Neck exam general surgery: Present: supple, trachea midline - Respiratory Respiratory exam: Present: CTAB - Cardiovascular Cardiovascular exam: Present: irregular rhythm - GI/Abdominal GI/Abdominal exam: Present: normal bowel sounds, soft. Absent: tenderness - Extremities Exam Additional comments: Patient has contusion to the anterior right shoulder, right lateral proximal fibula. Patient has limited/restricted active motion in her right upper extremity secondary to pain with attempted movement. She is able to move all other extremities without restriction. There is no sign of deformity to her right upper extremity or right lower extremity. - Neurological Exam Neurological exam: Present: alert, no focal deficits. Absent: speech deficit - Psychiatric Psychiatric exam: Present: normal affect, normal mood - Skin Skin exam: Present: warm Internal Medicine: Result - Labs CBC & Chem 7: 04/29/16 01:24 04/29/16 01:24 Labs: Short CBC 04/29/16 Range/Units 01:24 WBC 12.1 H (4.3-11.1) K/mcL Hgb 15.2 (11.5-15.4) g/dL Hct 46.1 H (35.3-44.9) % Plt Count 296 (140-400) K/mcL Neutrophils # 10.4 H (1.6-8.9) K/mcL BMP 04/29/16 01:24 Sodium 134 L Potassium 4.3 Chloride 96 L Carbon Dioxide 27 BUN 24 H Creatinine 1.01 Glucose 175 H Calcium 9.2 Cardiac Enzymes 04/28/16 04/29/16 Range/Units 20:56 01:24 Troponin I 1.57 H* 1.65 H* (0-0.03) ng/mL - ABG Interpretation ABG results: PT/INR, D-dimer PT 10.4 Seconds (9.4-12.1) 04/28/16 14:00 Consult Discharge Plan - Plan Referrals: Raphael Galan Jr, MD [Primary Care Provider] - <Osman Scott - Last Filed: 04/30/16 19:59> - Assessment and plan (1) NSTEMI (non-ST elevated myocardial infarction) Current Visit: Yes Status: Acute (2) Dementia Current Visit: Yes Status: Chronic Qualifiers: Dementia type: unspecified type Dementia behavioral disturbance: without behavioral disturbance Qualified Code(s): F03.90 - Unspecified dementia without behavioral disturbance (3) Atrial fibrillation Current Visit: No Status: Chronic Qualifiers: Atrial fibrillation type: chronic Qualified Code(s): I48.2 - Chronic atrial fibrillation (4) Hypothyroidism Current Visit: Yes Status: Chronic Qualifiers: Hypothyroidism type: unspecified Qualified Code(s): E03.9 - Hypothyroidism , unspecified (5) Hypertension Current Visit: Yes Status: Chronic Qualifiers: Hypertension type: essential hypertension Qualified Code(s): I10 - Essential (primary) hypertension - Constitutional Vitals: Temp Pulse Resp BP Pulse Ox 97.6 F 83 17 114/79 97 04/30/16 15:52 04/30/16 15:52 04/30/16 15:52 04/30/16 15:52 04/30/16 15:52 Internal Medicine: Result - Labs CBC & Chem 7: 04/30/16 01:27 04/30/16 01:27 Labs: Short CBC 04/30/16 Range/Units 01:27 WBC 13.0 H (4.3-11.1) K/mcL Hgb 12.8 D (11.5-15.4) g/dL Hct 39.5 (35.3-44.9) % Plt Count 289 (140-400) K/mcL Neutrophils # 10.3 H (1.6-8.9) K/mcL BMP 04/30/16 01:27 Sodium 137 Potassium 4.8 H Chloride 99 Carbon Dioxide 27 BUN 27 H Creatinine 1.06 Glucose 141 H Calcium 9.0 - ABG Interpretation ABG results: PT/INR, D-dimer PT 10.4 Seconds (9.4-12.1) 04/28/16 14:00 - Attending Attestation I examined this patient and my medical decision-making was reviewed with the Resident Physician on 04/29/16. I agree with the documented findings, disposition and treatment plan as described except to the extent set forth below. Ms. Tinajero is currently admitted for acute NSTEMI. She is at moderate to high risk due to potential cardiac compromise. Ms. Tinajero is complaining of pain in her arm. No chest pain or dyspnea. No GI symptoms. Exam Alert. Comfortable. Heart irreg Lungs clear I/P 1. Acute NSTEMI 2. Dementia Further diagnoses and plan as above.
[2016-04-29] MEDS ORDERED: *HR* LORazepam 2 MG/ML VIAL IVP ONE (23:50)
[2016-04-30 01:51] LABS: Basophils % 0.2 %; Eosinophils % 0.1 %; Hematocrit 39.5 % (35.3-44.9); Hemoglobin 12.8 g/dL (11.5-15.4); Immature Granulocytes % 2.2 % (0-4); Immature Platelets 3.8 % (1.1-6.1); Lymphocytes # 0.8 K/mcL (0.6-4.6); Mean Corpuscular HGB Conc 32.4 g/dL (31.6-35.5); Mean Corpuscular Hemoglobin 27.3 pg (28.0-33.3); Mean Corpuscular Volume 84.2 fL (83.0-100.0); Mean Platelet Volume 9.8 fL (9.4-12.4); Monocytes # 1.7 K/mcL (0.0-1.3); Monocytes % 12.7 %; Neutrophils # 10.3 K/mcL (1.6-8.9); Platelet Count 289 K/mcL (140-400); Red Blood Count 4.69 M/mcL (3.82-4.97); Red Cell Distribution Width 14.5 % (11.5-14.5); Segmented Neutrophils % 78.8 %
[2016-04-30 02:02] LABS: BUN/Creatinine Ratio 25 (6-26); Blood Urea Nitrogen 27 mg/dL (7-20); Carbon Dioxide 27 mEq/L (19-29); Chloride 99 mEq/L (98-109); Glucose 141 mg/dL (70-99); Osmolality,Calculated 291 (280-300); Potassium 4.8 mEq/L (3.5-4.5); Sodium 137 mEq/L (136-145); eGFR For African Americans > 60 (> 60); eGFR For Non-African Americans 50 (> 60)
[2016-04-30] MEDS ORDERED: *HR* LORazepam 2 MG/ML VIAL IVP ONE (02:18)
[2016-04-30] MEDS: Heparin 25,000 UNIT/500 ML D5W 25,000 UNIT/500 ML MLS IVC SCH (03:43)
[2016-04-30] MEDS: *HR* OxyCODONE/APAP 5/325 TABLET PO PRN ×3 (06:21→21:43)
[2016-04-30] MEDS: Tiotropium 18 MCG inhalation IH SCH (08:15)
[2016-04-30] MEDS: Budesonide/Formoterol 160/4.5 MDI IH SCH ×2 (08:15→20:00)
--- NOTE | 2016-04-30 08:38 | Internal Med Progress Note ---
<Sam Mcmullen - Last Filed: 04/30/16 15:05> Date of Encounter: 04/30/16 Time of Encounter: 08:38 - Assessment and plan (1) Fall Current Visit: Yes Status: Acute Assessment and plan: Patient is an elderly female who is supposed to be using her walker or cane at home but has poor compliance. She has underlying dementia and currently lives alone with frequent checkup by family members. She was found down after a mechanical fall in her bathroom for unknown length of time. Patient is found to have atrial fibrillation with RVR, urinary tract infection and NSTEMI. Family member states that the patient has had increased confusion over the last week. Her fall is likely secondary to urinary tract infection and associated atrial fibrillation with RVR and NSTEMI. - Multiple x-ray studies were reviewed without knee findings of osseous fractures. Plan: -Patient currently on fall precautions - Patient will likely need addiction social worker evaluation for rehabilitation placement - PT/OT evaluation Qualifiers: Encounter type: initial encounter Qualified Code(s): W19.XXXA - Unspecified fall, initial encounter (2) NSTEMI (non-ST elevated myocardial infarction) Current Visit: Yes Status: Acute Assessment and plan: Patient was found to have elevated troponins 1.8-1.53 and known coronary artery disease. Patient was started on heparin IV. The patient is without left -sided chest pain, chest pressure or pain radiation. EKGs reviewed. Cardiology to perform coronary catherization today. Plan: - Continue heparin IV for total 48 hours - Continue aspirin, statin, beta shruthi to maximize cardiac therapy. - NPO for procedure. (3) Elevated troponin Current Visit: Yes Status: Acute Assessment and plan: Elevated troponins from 1.8-1.5. Previous troponins do not show a trend of elevation. Cardiology was consulted and has evaluated the patient. Plan as above. (4) Atrial fibrillation with RVR Current Visit: Yes Status: Acute Assessment and plan: The patient is a known history of atrial fibrillation for which she takes diltiazem LA 180 mg by mouth daily. Patient was admitted with atrial fibrillation RVR likely exacerbation of atrial fibrillation secondary to urinary tract infection. She is currently on home dose of Cardizem and treating underlying medical conditions. Heart rate is currently controlled. Plan: - Continue Cardizem CD 180 mg by mouth daily. - Continue cardiac monitoring. - Patient is not on warfarin therapy at home likely secondary to risk of fall. Currently patient is on heparin IV for NSTEMI. (5) Rhabdomyolysis Current Visit: Yes Status: Acute Assessment and plan: Patient has elevated CK at the time of admission with preserved renal function. Elevated creatinine kinase likely secondary to fall at home. Plan: - Continue to monitor renal function. -Gentle rehydration in an elderly patient. Qualifiers: Rhabdomyolysis type: traumatic Encounter type: initial encounter Qualified Code(s): T79.6XXA - Traumatic ischemia of muscle, initial encounter (6) UTI (urinary tract infection) Current Visit: Yes Status: Acute Assessment and plan: Patient found to have urinary tract infection currently on ceftriaxone. Patient had increased confusion at home, mechanical fall and rapid ventricular rates. Plan: - Continue ceftriaxone for treatment of UTI. - Culture Demonstrates E. coli for which is sensitive to Ceftriaxone. Qualifiers: Urinary tract infection type: acute cystitis Hematuria presence: with hematuria Qualified Code(s): N30.01 - Acute cystitis with hematuria (7) Dementia Current Visit: Yes Status: Chronic Assessment and plan: Patient has underlying dementia with increased confusion prior to admission. Continue to monitor mental status. Qualifiers: Dementia type: unspecified type Dementia behavioral disturbance: without behavioral disturbance Qualified Code(s): F03.90 - Unspecified dementia without behavioral disturbance (8) Hypothyroidism Current Visit: Yes Status: Chronic Assessment and plan: Patient has known hypothyroidism, continue home dose of 50 mcg by mouth daily levothyroxine Qualifiers: Hypothyroidism type: unspecified Qualified Code(s): E03.9 - Hypothyroidism , unspecified (9) DVT prophylaxis Current Visit: No Status: Acute Assessment and plan: Patiently currently on IV heparin. - Subjective Interval history: Mrs. Tinajero 85-year-old female has been seen and evaluated patient bedside. She is alert and interactive in no acute distress. She complains of right shoulder pain which is slightly improved compared to admission. She continues to have some blurry vision that was present before admission. She says she had a bad night but is unsure of the events. She was moved from the back of the unit to next to the nursing station as she had sun downers. She continues to deny any chest pain, chest pressure, palpitations, abdominal pain or urinary discomfort/ burning. - Constitutional Vitals: Temp Pulse Resp BP Pulse Ox 98.8 F 98 20 116/75 96 04/30/16 07:52 04/30/16 07:52 04/30/16 08:15 04/30/16 07:52 04/30/16 08:15 General appearance: Present: A&O X 3, pleasant, no acute distress - Head Head exam: Present: atraumatic, normocephalic - Eye Eye exam: Present: PERRL, conjuntiva pink, sclera anicteric - ENT ENT exam: Present: mucous membranes moist - Neck Neck exam general surgery: Present: supple, trachea midline - Respiratory Respiratory exam: Present: CTAB - Cardiovascular Cardiovascular exam: Present: irregular rhythm - GI/Abdominal GI/Abdominal exam: Present: normal bowel sounds, soft. Absent: tenderness - Extremities Exam Extremities exam: Present: warm, radial pulses palpable and symetrical Additional comments: patient has a large contusion with eccymosis on the anterior right shoulder and right lateral fibula. patient has tenderness to palpation of the right shoulder and proximal upper extremity. - Neurological Exam Neurological exam: Present: alert - Psychiatric Psychiatric exam: Present: normal affect, normal mood - Skin Skin exam: Present: warm Internal Medicine: Result - Labs CBC & Chem 7: 04/30/16 01:27 04/30/16 01:27 Labs: Short CBC 04/30/16 Range/Units 01:27 WBC 13.0 H (4.3-11.1) K/mcL Hgb 12.8 D (11.5-15.4) g/dL Hct 39.5 (35.3-44.9) % Plt Count 289 (140-400) K/mcL Neutrophils # 10.3 H (1.6-8.9) K/mcL BMP 04/30/16 01:27 Sodium 137 Potassium 4.8 H Chloride 99 Carbon Dioxide 27 BUN 27 H Creatinine 1.06 Glucose 141 H Calcium 9.0 - ABG Interpretation ABG results: PT/INR, D-dimer PT 10.4 Seconds (9.4-12.1) 04/28/16 14:00 Consult Discharge Plan - Plan Referrals: Raphael Galan Jr, MD [Primary Care Provider] - <Osman Scott - Last Filed: 04/30/16 20:03> - Assessment and plan (1) NSTEMI (non-ST elevated myocardial infarction) Current Visit: Yes Status: Acute (2) Dementia Current Visit: Yes Status: Chronic Qualifiers: Dementia type: unspecified type Dementia behavioral disturbance: without behavioral disturbance Qualified Code(s): F03.90 - Unspecified dementia without behavioral disturbance (3) Atrial fibrillation Current Visit: No Status: Chronic Qualifiers: Atrial fibrillation type: chronic Qualified Code(s): I48.2 - Chronic atrial fibrillation (4) Hypothyroidism Current Visit: Yes Status: Chronic Qualifiers: Hypothyroidism type: unspecified Qualified Code(s): E03.9 - Hypothyroidism , unspecified (5) Hypertension Current Visit: Yes Status: Chronic Qualifiers: Hypertension type: essential hypertension Qualified Code(s): I10 - Essential (primary) hypertension - Constitutional Vitals: Temp Pulse Resp BP Pulse Ox 97.6 F 83 17 114/79 97 04/30/16 15:52 04/30/16 15:52 04/30/16 15:52 04/30/16 15:52 04/30/16 15:52 Internal Medicine: Result - Labs CBC & Chem 7: 04/30/16 01:27 04/30/16 01:27 Labs: Short CBC 04/30/16 Range/Units 01:27 WBC 13.0 H (4.3-11.1) K/mcL Hgb 12.8 D (11.5-15.4) g/dL Hct 39.5 (35.3-44.9) % Plt Count 289 (140-400) K/mcL Neutrophils # 10.3 H (1.6-8.9) K/mcL BMP 04/30/16 01:27 Sodium 137 Potassium 4.8 H Chloride 99 Carbon Dioxide 27 BUN 27 H Creatinine 1.06 Glucose 141 H Calcium 9.0 - ABG Interpretation ABG results: PT/INR, D-dimer PT 10.4 Seconds (9.4-12.1) 04/28/16 14:00 - Attending Attestation I examined this patient and my medical decision-making was reviewed with the Resident Physician on 04/30/16. I agree with the documented findings, disposition and treatment plan as described except to the extent set forth below. Ms. Tinajero is currently admitted for acute NSTEMI. She remains moderate to high risk due to potential of worsening cardiac issues. Ms. Tinajero is to have cardiac cath today. Her only complaint is pain in her arm and leg. No chest pain. Exam Alert. Comfortable Heart irreg Lungs no wheeze Abd soft I/P 1. Acute NSTEMI - cath today 2. a fib 3. dementia Further diagnoses and plan as above.
--- NOTE | 2016-04-30 09:13 | Event Note ---
Date of Encounter: 04/30/16 Time of Encounter: 08:30 - Cardiology Event Note Seen and examined. Alert and oriented x3. Denies chest pain or events overnight. Patient and family want to proceed with LHC for mgmt of NSTEMI & new SWMA described on echocardiogram. Alternatives, risks, and benefits discussed--all are agreeable to proceed. Madyson (POA) granddaughter at bedside. Discussed with Dr. Rai, patient okay to have light breakfast. Plan for LHC this afternoon. Further recommendations pending LHC. Discussed and reviewed with Dr. Lin.
[2016-04-30] MEDS: Aspirin 81 MG TAB.CHEW PO SCH (10:09)
[2016-04-30] MEDS: Furosemide 40 MG TABLET PO SCH (10:09)
[2016-04-30] MEDS: Diltiazem CD (24hr) 180 MG CAPSULE PO SCH (10:09)
[2016-04-30] MEDS ORDERED: Verapamil 5 MG/2 ML VIAL ONE (13:37)
[2016-04-30] MEDS ORDERED: *HR* FentaNYL (PF) 100 MCG/2 ML VIAL ONE (13:37)
[2016-04-30] MEDS ORDERED: *HR* Midazolam HCl 2 MG/2 ML VIAL ONE (13:37)
[2016-04-30] MEDS ORDERED: *HR* Heparin 10,000 UNIT/10 ML VIAL ONE (13:38)
[2016-04-30] MEDS ORDERED: 0.9 % Sodium Chloride 1,000 ML ONE ×2 (13:38→13:53)
[2016-04-30] MEDS ORDERED: Heparin 1,000 UNITS/500 mL NS 500 ML ONE (13:38)
[2016-04-30] MEDS ORDERED: Nitroglycerin 1,000 MCG/10 ML VIAL IV ONE (13:38)
--- NOTE | 2016-04-30 14:01 | Pre-Sedation Evaluation ---
Pre-sedation evaluation - Pre-sedation checklist Date of procedure: 04/30/16 Procedure: heart cath Recent Vitals: Last Vital Signs Temp 98 F 04/30/16 11:20 Pulse 95 04/30/16 11:20 Resp 16 04/30/16 11:20 BP 111/65 04/30/16 11:20 Pulse Ox 96 04/30/16 11:20 H&P (including ROS) documented in medical record: Yes Previous reaction to sedatives/anesthetics: No Dietary Status: No solid food in preceding 4 hrs and no liquid in preceding 2 hrs Dentition: dentures removed ASA Classification *see protocol: CLASS II-Mild systemic disease Plan of Care: Pt appropriate candidate for procedure/moderate/conscious sedation , Risks/benefits of procedure/sedation discussed w/ patient/family
--- NOTE | 2016-04-30 14:31 | Invasive Diagnostic Lab Proc ---
Name: Rubi Tinajero Date of Study: 04/30/2016 Date: 1930 Ht: 59.8in Medical Record#: [id number] Age: 85 Wt: 128.53lb Gender: Female BSA: 1.54 Order #: [id number] BMI: 25.23 Physicians Procedure Physician: Darius Rai MD, [facility] Referring MD: Referring MD: Staff Name Position Time In Yahaira Cox RT (R) Monitor 01:59 PM Bryan Wilkes RN Scrub 02:00 PM Mely Rodriguez RN Revenue Integrity Analyst 02:00 PM Indications Indication Non-Stemi Procedures Performed Procedure L HRT ARTERY/VENTRICLE ANGIO Pre-Procedure Checklist Informed consent is complete signed and on chart. H\\T\\P is on chart. ID band is on and ID verified with patient. Patient NPO for procedure The procedure was described for the patient and questions were answered. Blood Pressure: 130/76 ECG is on chart. Rhythm: Atrial Fibrillation Plan of Care Patient will tolerate the procedure without complications. Adequate level of comfort will be maintained. Hemodynamics will remain stable Patient will recover from procedure without complications. Respiratory function will be maintained. Cardiac rhythm will remain stable. Patient temperature will be maintained. Patient and/or family have verbalized understanding of the procedure. Patient Education Chief Complaint/Reason for Test: Cardiac Cath Developmental Category: Geriatric (65+ years) Developmentally Appropriate for Age: Yes Learning Barriers: None Education Needs: Procedure Education Method: Verbal Information Taught: Cardiac Cath Educational Evaluation: Able to repeat information Intravenous Access Time IV Size Location DC'd Fluid/Drip Rate Units RN 02:01 PM 22g 1" Patent On Arrival Lt Hand 0.9NaCl 25 ml/hr Mely Rodriguez RN Allergies Penicillins Vital Signs Time BP (mmHg) HR (bpm) O2 Sat. RR (bpm) LOC 02:01 PM / % 5 = Fully awake and oriented or at pre-proc level 02:01 PM / % 4 = Oriented but drowsy 02:02 PM 130 / 76 91 100 % 19 02:07 PM 130 / 77 89 100 % 21 02:12 PM 127 / 74 99 98 % 17 02:17 PM 128 / 65 87 99 % 14 Procedural Medications Time Medication Dose Units Method Given By 02:01 PM Oxygen 6 L/min simple face mask Mely Rodriguez RN 02:03 PM Versed 1 mg Intravenous Mely Rodriguez RN 02:03 PM Fentanyl 25 mcg Intravenous Mely Rodriguez RN 02:05 PM Lidocaine 2% 15 ml Subcutaneous Darius Rai MD, [facility] ASA Classification: CLASS II- Mild systemic disease (i.e. well-controlled diabetes, hypertension, asthma, cigarette smoking) Cintia Score Preprocedure Postprocedure Activity 2- Moves 4 extremities sustained head lift Activity 2- Moves 4 extremities sustained head lift Circulation 2- SBP +/= 20 points of pre-anesthetic level Circulation 2- SBP +/= 20 points of pre-anesthetic level Consciousness 2- Awake and alert oriented x 3 Consciousness 2- Awake and alert oriented x 3 O2 Saturation 2- Able to maintain O2 satruation of 92% on room air O2 Saturation 2- Able to maintain O2 satruation of 92% on room air Respiratory 2- Able to deep breathe and cough well Respiratory 2- Able to deep breathe and cough well Total Score 10 Total Score 10 Contrast Agent: Isovue Diagnostic Contrast: 47 ml Total Contrast: 47 ml Fluoro Dose: 121 mGy Procedure Log Time Note Enter By 01:44 PM CathStat 01:48 PM Pt arrived to labor relations or personnel negotiator 2 at 13:48 twilson 01:48 PM CathStat 01:49 PM Physician arrived 13:49 twilson 01:49 PM Meet and greet completed twilson 01:49 PM Sign in performed according to hospital policy. twilson 01:49 PM Procedure start 13:49 twilson 01:59 PM Vitals capture started with the following parameters, Patient=Adult, Interval=5 min, Initial Zjkbcrlq=421 mmHg, Deflation Rate=5 mmHg, Cuff placed on Right Arm 01:59 PM Recorded ECG: HR=85 Condition=Condition 1 02:00 PM Yahaira Cox (R) Position: Monitor Time in: 13:59 twilson 02:00 PM Bryan Wilkes RN Position: Scrub Time in: 14:00 twilson 02:00 PM Mely Rodriguez RN Position: Revenue Integrity Analyst Time in: 14:00 twilson 02:00 PM Patient charges- Angio tray pack, Navilyst 3mm J, Pulse Oximetry and ACIST tubing and transducer twilson 02:00 PM Case Delayed no twilson 02:00 PM Hair removed from procedure site in procedure lab using clippers. Bilateral groin prepped with Chloraprep by Yahaira Cox (R) then patient draped. Skin intact. tw: PM ASA Class CLASS II- Mild systemic disease (i.e. well-controlled diabetes, hypertension, asthma, cigarette smoking) : PM Time: 14: Oxygen on at 6 L/min per simple face mask by Mely Rodriguez RN : PM Time: 14: Patient comfortable and pain free: Yes PM Time: 14:LOC: 5 = Fully awake and oriented or at pre-proc level twilson : PM Vitals capture stopped. : PM Vitals capture started with the following parameters, Patient=Adult, Interval=5 min, Initial Kowhsxnd=773 mmHg, Deflation Rate=5 mmHg, Cuff placed on Right Arm : PM HR=91 bpm, JWKJ=794/76 mmhg, PxY9=766.0 %, Resp=19 B/min 02:03 PM Time: 14:03 Versed 1 mg Intravenous Given by Mely Rodriguez RN lilian : PM Time: 14:03 Fentanyl 25 mcg Intravenous Given by Mely Rodriguez RN [facility] : PM Time out performed according to hospital policy tw: PM Time: 14:05 15 ml Lidocaine 2% to right groin Subcutaneous Given by Darius Rai MD, [facility] tw: PM Pressure channel 1 zeroed. 02:07 PM Access obtained by percutaneous puncture. 5Fr 10cm Terumo [place] sheath placed in right Femoral artery. [id number] twilson 02: PM HR=89 bpm, QLIU=828/77 mmhg, MnH4=190.0 %, Resp=21 B/min 02: PM 5Fr FL 4 catheter inserted over the wire [facility] twilson : PM Wire removed, intact. twilson : PM Recorded Pressure: Ao, HR=84, Condition=Condition 1 (Aorta) Ao 99/68/83 02:08 PM LCA angiography performed in multiple views. tw: PM Lesion found in LMCA. Pre Stenosis: 20 Pre PARIS Flow: 3: Complete and Brisk Flow/Perfusion twilson 02:09 PM Left Main Coronary Artery with 20% stenosis twilson 02: PM Wire reinserted and catheter removed. tw 02: PM 5Fr FR 4 catheter inserted over the wire [facility] twilson 02:10 PM Wire removed, intact. twilson 02:10 PM RCA angiography performed in multiple views. twilson 02:10 PM Coronary Dominance: right twilson 02:10 PM Recorded Pressure: Ao, HR=83, Condition=Condition 1 (Aorta) Ao 95/76/86 02:12 PM Catheter removed twilson 02:12 PM 5Fr Pigtail catheter inserted over the wire DNC twilson 02:12 PM HR=99 bpm, YSUB=274/74 mmhg, SpO2=98.0 %, Resp=17 B/min 02:12 PM Catheter selectively placed in left ventricle twilson 02:12 PM Wire removed, intact. twilson 02:13 PM Bolus angiogram of left Ventricle complete: 10 ml/sec for a total of 34 mls twilson 02:13 PM Pressure channel 1 zero failed. 02:13 PM Pressure channel 1 zero failed. 02:13 PM Pressure channel 1 zeroed. 02:13 PM Recorded Pressure: LV, HR=81, Condition=Condition 1 (Left Ventricle) LV 100/17/12 02:13 PM Recorded Pressure: LV, Ao, HR=84, Condition=Condition 1 (Left Ventricle) LV 95/11/11, (Aorta) Ao 103/55/76 02:14 PM Catheter removed twilson 02:14 PM Bolus angiogram of right Femoral complete: 2 ml/sec for a total of 4 mls twilson 02:15 PM Lesion found in Ostiall RCA. Pre Stenosis: 50 Pre PARIS Flow: 3: Complete and Brisk Flow/Perfusion twilson 02:15 PM Right Coronary, Right Posterior Descending Arteries with Right Posterolateral and Acute Marginal branches with 50 % stenosis. If graft is supplying this area, % stenosis twilson 02:15 PM Procedure completed at 14:15 twilson 02:16 PM Time: 14:01LOC: 4 = Oriented but drowsy twilson 02:16 PM Time: 14:01 Patient comfortable and pain free: Yes twilson 02:16 PM Sign out completed: Radiation Dose 121.23 mGy Fluoro Time: 1.1 Isovue 370 - 200ml contrast 47 ml given by Darius Rai MD, [facility]. Complications: NoneCardiac Rehab Consult needed: NoConfirmed administered medications: Yes tw:17 PM Isovue 370 - 200ml,1 Bottle(s) used. twilson 02:17 PM Arterial sheath pulled, Mynx closure device used and was Successful S/N. twilson 02:17 PM Post ECG Atrial Fibrillation twilson 02:17 PM Post Blood Pressure 127/74 twilson 02:17 PM 14:17 Post Pulses Bilateral DP \\T\\ PT 1+ twilson 02:17 PM 14:17 Post Pulses Bilateral radial 2+ twilson 02:17 PM HR=87 bpm, WRCL=139/65 mmhg, SpO2=99.0 %, Resp=14 B/min 02:17 PM Information taught Cardiac Cath and Mynx twilson 02:17 PM Education needs Procedure, Plan of Care, and Responsibilities of Patient in Care twilson 02:17 PM Learning barriers :None twilson 02:17 PM Education Methods Verbal twilson 02:17 PM Education evaluation Able to repeat information twilson 02:18 PM Site status No bleeding/hematoma - Rt Groin as reported by Bryan Wilkes RN at 14:18 twilson 02:18 PM Opsite applied twilson 02:19 PM Delay to floor No twilson 02:23 PM Report given to Manjeet TRAMMELL Pt taken to E Room #32. 14:23 twilson 02:23 PM Patient out of room: 14:23 twilson Complications Complication None Hemodynamics Pressures Site Systolic/A Wave Diastolic/V Wave Mean AO 99 68 83 AO 95 76 86 LV 100 17 12 LV 95 11 11 AO 103 55 76 Post Procedure Information Blood Pressure: 127/74 mmHg Rhythm: Atrial Fibrillation Post procedural instructions were given Closure Device Time Device Success/Fail 04/30/2016 2:19:00 PM MynxGrip Successful Site Checks Time Location Status Staff Sheath In? Note 02:18 PM Rt Groin No bleeding/hematoma Bryan Wilkes RN Pulses Time Site Pre-Procedure Post-Procedure Note 04/30/2016 2:05:00 PM Bilateral DP \\T\\ PT 1+ 04/30/2016 2:05:00 PM Bilateral radial 2+ 2:17:00 PM Bilateral DP \\T\\ PT 1+ 2:17:00 PM Bilateral radial 2+ Updated by Yahaira Cox RT (R) on 04/30/2016 2:25:29 PM electronically signed on 04/30/2016 2:26:20 PM with status of Final
[2016-04-30] MEDS ORDERED: 0.9 % Sodium Chloride 1,000 ML IVC ONE (15:01)
--- NOTE | 2016-04-30 15:16 | Event Note ---
Date of Encounter: 04/30/16 Time of Encounter: 15:12 [facility] reviewed. Nonobstructive one vessel CAD. NICMP. Ventriculogram consistent with Takotsubo Syndrome. Recommend 1. Stop CCB. 2. Aspirin and BB therapy. Add ACEi as BP allows. Statin once rhabdomyolysis resolved. 3. Stop heparin drip, start DVT prophylaxis. 4. Outpatient cardiology follow up. Thanks, Jitendra Lin DO, FACC
--- NOTE | 2016-04-30 16:41 | Invasive Diagnostic Lab ---
Name: Rubi Tinajero Date of Study: 04/30/2016 Date: 1930 Ht: 152.0 cm /59.8 in Medical Record#: [id number] Age: 85 Wt: 58.3 kg / 128.53 lb Account/Order#: [id number] Gender: Female BSA: 1.54 Order #: [id number] Fluoro Dose: 121 mGy BMI: 25.23 Procedure Physician: Darius Rai MD, FACC Referring MD: Referring MD: Procedures Performed: LEFT HEART CATH Indications: Non-Stemi Impressions: There is moderate two vessel coronary artery disease. There is severe LV Dysfunction EF 20-25% Recommendations: Optimal medical therapy of patient's disease. Aggressive risk factor modification. Takotsubo cardiomyopathy History/Risk Factors: a-fib CHF DVT dementia arthritis UTI COPD Hypertension Procedure Access obtained in the right Femoral artery by percutaneous puncture Complications: None Contrast: Isovue 47ml Closure Device: MynxGrip Hemodynamics: Pressures Site Systolic/ A Wave Diastolic/ V Wave End Diastolic/ Mean HR AO 99 68 83 84 AO 95 76 86 83 LV 100 17 12 81 LV 95 11 11 82 AO 103 55 76 89 LV Ventriculography Ejection Method: LV Gram Ejection Fraction: 25% Wall Motion: CARDENAS Anterobasal Hyperkinesis Anterolateral Akinesis Apical: Akinesis Inferoapical Akinesis Inferobasal Hyperkinesis Coronary Dominance: right Lesion Findings/Interventions * Left Main Coronary Artery There is a 20% stenosis in the LMCA. The lesion has a PARIS flow of 3. * Left Anterior Descending The Mid-Distal LAD is tortuous. The LAD is angiographically free of disease. The 1st Diagonal is angiographically free of disease. * Circumflex The Circumflex is angiographically free of disease. The 1st Marginal is angiographically free of disease. * Right Coronary Artery There is a 50% stenosis in the Ostial RCA. The lesion has a PARIS flow of 3. Updated by RT Miah (R) on 04/30/2016 2:24:54 PM Darius Rai MD, FACC electronically signed on 04/30/2016 4:37:08 PM with status of Final
[2016-04-30] MEDS: Metoprolol XL (24 HR) Succ 50 MG TAB.ER.24H PO SCH (21:43)
[2016-04-30] MEDS: *HR* Heparin 5,000 UNIT/ML VIAL SQ SCH (22:11)
[2016-05-01] MEDS: Ondansetron 4 MG/2 ML VIAL IVP PRN ×2 (02:01→20:35)
[2016-05-01] MEDS: *HR* OxyCODONE/APAP 5/325 TABLET PO PRN ×3 (05:51→20:35)
[2016-05-01] MEDS: *HR* Heparin 5,000 UNIT/ML VIAL SQ SCH ×2 (05:52→18:28)
[2016-05-01 05:55] LABS: Basophils % 0.3 %; Eosinophils % 0.3 %; Hematocrit 33.6 % (35.3-44.9); Immature Granulocytes % 1.4 % (0-4); Lymphocytes # 0.4 K/mcL (0.6-4.6); Lymphocytes % 5.4 %; Mean Corpuscular HGB Conc 32.7 g/dL (31.6-35.5); Mean Corpuscular Hemoglobin 27.3 pg (28.0-33.3); Mean Corpuscular Volume 83.4 fL (83.0-100.0); Mean Platelet Volume 10.3 fL (9.4-12.4); Monocytes # 0.8 K/mcL (0.0-1.3); Monocytes % 9.7 %; Neutrophils # 6.4 K/mcL (1.6-8.9); Platelet Count 222 K/mcL (140-400); Red Blood Count 4.03 M/mcL (3.82-4.97); Red Cell Distribution Width 14.3 % (11.5-14.5); Segmented Neutrophils % 82.9 %
[2016-05-01 06:13] LABS: BUN/Creatinine Ratio 27 (6-26); Blood Urea Nitrogen 23 mg/dL (7-20); Calcium 8.2 mg/dL (8.6-10.8); Carbon Dioxide 24 mEq/L (19-29); Chloride 102 mEq/L (98-109); Glucose 124 mg/dL (70-99); Osmolality,Calculated 285 (280-300); Potassium 4.1 mEq/L (3.5-4.5); Sodium 135 mEq/L (136-145); eGFR For African Americans > 60 (> 60); eGFR For Non-African Americans > 60 (> 60)
--- NOTE | 2016-05-01 09:24 | Cardiology Progress Note ---
Date of Encounter: 05/01/16 Time of Encounter: 09:00 Assessment and Plan (1) Nonischemic cardiomyopathy Current Visit: Yes Status: Acute LHC: non-obstructive CAD, suspect Takotsubo cardiomyopathy. EF 20-25%. Calcium channel shruthi stopped, betablocker changed to Toprol XL (HR now controlled). Appears euvolemic upon exam; will decrease Lasix to 20 mg po daily. Start low dose ACEi. Recommend continuation of goal directed medical therapy for CHF; close outpatient follow-up with [facility]. (2) Atrial fibrillation with RVR Current Visit: Yes Status: Acute Rate controlled on oral betablocker. ASA only due to frequent falls. (3) Fall Current Visit: Yes Status: Acute Fall with rhabdomyolysis, mgmt. per primary service. Anticipate discharge to SNF. Qualifiers: Encounter type: initial encounter Qualified Code(s): W19.XXXA - Unspecified fall, initial encounter Discussion w patient/family: The assessment and plan as outlined above was discussed with the patient and/or family members who expressed understanding and agreement. All questions were answered. Thank you for involving us in the care of your patient. Please call with any questions. The patient was discussed and reviewed with Dr. Lin; Cardiology will sign- off, primary service updated. Subjective Principal diagnosis: Takotsubo cardiomyopathy Interval history: Seen and examined. No acute complaints overnight. Alert x2 this AM--has required 1:1 sitter throughout the night. No family present at beside this AM. Objective Vital Signs, Last 4 Hours Pulse Resp BP Pulse Ox 05/01/16 07:38 86 20 128/91 96 05/01/16 07:06 87 16 118/69 95 General: Conversant HEENT: Atraumatic, Normocephaly Cardiac: Other (irregularly irregular) Lungs: Normal Breath Sounds Neuro: Alert and responsive Abdomen: Soft Skin: No rashes noted on visualized skin Musculoskeletal: No Chest Wall Tenderness Extremities: No Edema, Normal Pulses Other: right radial cath site: +2 pulses, no hematoma or oozing noted. Results 05/01/16 05:24 05/01/16 05:24 Lab Results 04/30/16 05/01/16 05/01/16 09:13 05:24 05:24 WBC 7.7 Hgb 11.0 L D Hct 33.6 L Plt Count 222 APTT 55.5 H Sodium 135 L Potassium 4.1 Chloride 102 Carbon Dioxide 24 BUN 23 H Creatinine 0.84 Glucose 124 H Calcium 8.2 L Active Medications Acetaminophen (Tylenol) 650 mg PO Q6HR PRN PRN Reason: Mild Pain (1-3) Stop: 10/28/16 16:08 Albuterol Sulfate (Albuterol Inhaler) 2 puff IH [id number] PRN PRN Reason: Shortness Of Breath/Wheezing Stop: 10/29/16 13:58 Alprazolam (Xanax) 0.5 mg PO TID PRN; Protocol PRN Reason: Anxiety Stop: 10/28/16 16:11 Aspirin (Aspirin) 81 mg PO DAILY [facility] Stop: 10/29/16 09:01 Last Admin: 04/30/16 10:09 Dose: 81 mg Budesonide/Formoterol Fumarate (Symbicort) 2 puff IH BIDR [facility] Stop: 10/28/16 22:01 Last Admin: 04/30/16 20:00 Dose: 2 puff Citalopram Hydrobromide (Celexa) 20 mg PO DAILY [facility] Stop: 10/29/16 09:01 Last Admin: 04/30/16 10:09 Dose: 20 mg Furosemide (Lasix) 20 mg PO DAILY [facility] Stop: 10/31/16 09:17 Heparin Sodium (Porcine) (Heparin) 5,000 unit SQ Q8HCO [facility] Stop: 10/30/16 23:01 Last Admin: 05/01/16 05:52 Dose: 5,000 unit Ceftriaxone Sodium 1,000 mg/ (Dextrose) 100 mls @ 200 mls/hr IVPB DAILY [facility] Stop: 10/29/16 09:01 Last Admin: 04/30/16 10:09 Dose: 200 mls/hr Levothyroxine Sodium (Synthroid) 50 mcg PO DAILY [facility] Stop: 10/29/16 09:01 Last Admin: 04/30/16 10:10 Dose: 50 mcg Lisinopril (Zestril) 2.5 mg PO DAILY CHERYL PRN Reason: Protocol Stop: 10/31/16 09:31 Metoprolol Succinate (Toprol Xl) 50 mg PO BID [facility] Stop: 10/30/16 21:01 Last Admin: 04/30/16 21:43 Dose: 50 mg Montelukast Sodium (Singulair) 10 mg PO DAILY [facility] Stop: 10/29/16 09:01 Last Admin: 04/30/16 10:10 Dose: 10 mg Morphine Sulfate (Morphine Sulfate) 2 mg IVP Q4HR PRN PRN Reason: Severe Pain (7-10) Stop: 10/28/16 16:08 Last Admin: 04/29/16 13:50 Dose: 2 mg Naloxone HCl (Narcan) 0.4 mg IVP Q2MIN PRN PRN Reason: Opioid Reversal Stop: 10/28/16 16:08 Omeprazole (Prilosec) 40 mg PO DAILY [facility] Stop: 10/29/16 09:01 Last Admin: 04/30/16 10:09 Dose: 40 mg Ondansetron HCl (Zofran) 4 mg IVP Q8HR PRN PRN Reason: Nausea And Vomiting Stop: 10/28/16 16:08 Last Admin: 05/01/16 02:01 Dose: 4 mg Oxycodone/Acetaminophen (Percocet 5/325) 1 each PO Q6HR PRN PRN Reason: Pain Stop: 10/29/16 14:22 Last Admin: 05/01/16 05:51 Dose: 1 each Potassium Chloride (Potassium Chloride) 20 meq PO DAILY [facility] Stop: 10/29/16 09:01 Last Admin: 04/30/16 10:09 Dose: 20 meq Tiotropium [place] (Spiriva) 18 mcg IH DAILY CHERYL PRN Reason: Protocol Stop: 10/29/16 09:01 Last Admin: 04/30/16 08:15 Dose: 18 mcg - Imaging and Cardiology Echo: report reviewed Cardiac cath: report reviewed - EKG Interpretation EKG results cardiology: personally reviewed Consult Discharge Plan - Plan Referrals: Raphael Galan Jr, MD [Primary Care Provider] -
[2016-05-01] MEDS: Aspirin 81 MG TAB.CHEW PO SCH (10:19)
[2016-05-01] MEDS: Metoprolol XL (24 HR) Succ 50 MG TAB.ER.24H PO SCH ×2 (10:24→19:57)
[2016-05-01] MEDS: Tiotropium 18 MCG inhalation IH SCH (11:15)
[2016-05-01] MEDS: Budesonide/Formoterol 160/4.5 MDI IH SCH ×2 (11:15→20:56)
--- NOTE | 2016-05-01 15:25 | Internal Med Progress Note ---
<Sam Mcmullen - Last Filed: 05/01/16 16:34> Date of Encounter: 05/01/16 Time of Encounter: 08:45 - Assessment and plan (1) Fall Current Visit: Yes Status: Acute Assessment and plan: Patient's mental status is improving, heart rate is normalized, leukocytosis resolving with current antibiotic therapy. Elevated by physical therapy and recommended SNF or ECF. This has been discussed with the patient and her daughter were in agreement. Patient is an elderly female who is supposed to be using her walker or cane at home but has poor compliance. She has underlying dementia and currently lives alone with frequent checkup by family members. She was found down after a mechanical fall in her bathroom for unknown length of time. Patient is found to have atrial fibrillation with RVR, urinary tract infection and NSTEMI. Family member states that the patient has had increased confusion over the last week. Her fall is likely secondary to urinary tract infection and associated atrial fibrillation with RVR and NSTEMI. - Multiple x-ray studies were reviewed without knee findings of osseous fractures. Plan: -Patient currently on fall precautions - Plan for ECF postdischarge Qualifiers: Encounter type: initial encounter Qualified Code(s): W19.XXXA - Unspecified fall, initial encounter (2) NSTEMI (non-ST elevated myocardial infarction) Current Visit: Yes Status: Acute Assessment and plan: Patient was found to have elevated troponins 1.8-1.53 and known coronary artery disease. Patient was started on heparin IV. The patient is without left -sided chest pain, chest pressure or pain radiation. EKGs reviewed. Cardiology to perform coronary catherization today. Left heart catheter demonstrated nonobstructing coronary disease, suspect Takotsubo cardiomyopathy. ECF at 20-25%, Calcium channel shruthi d/c'd, Patient started on Toprolol XL. Plan: - Continue Lisinopril 2.5mg PO daily - Continue aspirin, statin, beta shruthi to maximize cardiac therapy. (3) Elevated troponin Current Visit: Yes Status: Acute Assessment and plan: Elevated troponins from 1.8-1.5. Previous troponins do not show a trend of elevation. Cardiology was consulted and has evaluated the patient. Plan as above. (4) Atrial fibrillation with RVR Current Visit: Yes Status: Acute Assessment and plan: The patient is a known history of atrial fibrillation for which she takes diltiazem LA 180 mg by mouth daily. Patient was admitted with atrial fibrillation RVR likely exacerbation of atrial fibrillation secondary to urinary tract infection. She is currently on home dose of Cardizem and treating underlying medical conditions. Heart rate is currently controlled. Plan: - Continue Cardizem CD 180 mg by mouth daily. - Continue cardiac monitoring. - Patient is not on warfarin therapy at home likely secondary to risk of fall. (5) Rhabdomyolysis Current Visit: Yes Status: Acute Assessment and plan: Patient has elevated CK at the time of admission with preserved renal function. Elevated creatinine kinase likely secondary to fall at home. Creatinine kinase improving. IV rehydration has been held with patient's severe decrease in EF Plan: - Continue to monitor renal function. - Recheck creatinine kinase in a.m. Qualifiers: Rhabdomyolysis type: traumatic Encounter type: initial encounter Qualified Code(s): T79.6XXA - Traumatic ischemia of muscle, initial encounter (6) UTI (urinary tract infection) Current Visit: Yes Status: Acute Assessment and plan: Patient found to have urinary tract infection currently on ceftriaxone. Patient had increased confusion at home, mechanical fall and rapid ventricular rates. Leukocytosis has resolved. Plan: - Continue ceftriaxone for treatment of UTI - Culture Demonstrates E. coli for which is sensitive to Ceftriaxone. Qualifiers: Urinary tract infection type: acute cystitis Hematuria presence: with hematuria Qualified Code(s): N30.01 - Acute cystitis with hematuria (7) Dementia Current Visit: Yes Status: Chronic Assessment and plan: Patient has underlying dementia with increased confusion prior to admission. Continue to monitor mental status. Patient's mental status is improving. Qualifiers: Dementia type: unspecified type Dementia behavioral disturbance: without behavioral disturbance Qualified Code(s): F03.90 - Unspecified dementia without behavioral disturbance (8) Hypothyroidism Current Visit: Yes Status: Chronic Assessment and plan: Patient has known hypothyroidism, continue home dose of 50 mcg by mouth daily levothyroxine Qualifiers: Hypothyroidism type: unspecified Qualified Code(s): E03.9 - Hypothyroidism , unspecified (9) DVT prophylaxis Current Visit: No Status: Acute Assessment and plan: Patient is on subcutaneous heparin every 8 hours. - Subjective Interval history: Mrs. Tinajero 85-year-old female has been seen and evaluated patient bedside. She is alert and interactive in no acute distress. She says that her right shoulder pain is much improved and significant improvement in her right leg pain. She denies any discomfort other than her right shoulder and right leg shows any chest pain, palpitations, chest pressure, shortness of breath, nausea , vomiting, diarrhea or constipation. Her daughters at bedside and was informed of her current medical conditions and post discharge plan was discussed. - Constitutional Vitals: Temp Pulse Resp BP Pulse Ox 97.8 F 84 20 121/67 100 05/01/16 15:00 05/01/16 15:00 05/01/16 15:00 05/01/16 15:00 05/01/16 15:00 General appearance: Present: A&O X 3, pleasant, no acute distress - Head Head exam: Present: atraumatic, normocephalic - Eye Eye exam: Present: PERRL, conjuntiva pink, sclera anicteric Pupils: Present: PERRL - ENT ENT exam: Present: mucous membranes moist - Neck Neck exam general surgery: Present: supple, trachea midline - Respiratory Respiratory exam: Present: CTAB - Cardiovascular Cardiovascular exam: Present: irregular rhythm - GI/Abdominal GI/Abdominal exam: Present: normal bowel sounds, soft. Absent: tenderness - Extremities Exam Extremities exam: Present: tenderness (Patient has tenderness to right anterior shoulder, same as yesterday. Ecchymosis to right lateral fibula), warm, radial pulses palpable and symetrical - Neurological Exam Neurological exam: Present: alert, no focal deficits - Psychiatric Psychiatric exam: Present: normal affect, normal mood - Skin Skin exam: Present: warm Internal Medicine: Result - Labs CBC & Chem 7: 05/01/16 05:24 05/01/16 05:24 Labs: Short CBC 05/01/16 Range/Units 05:24 WBC 7.7 (4.3-11.1) K/mcL Hgb 11.0 L D (11.5-15.4) g/dL Hct 33.6 L (35.3-44.9) % Plt Count 222 (140-400) K/mcL Neutrophils # 6.4 (1.6-8.9) K/mcL BMP 05/01/16 05:24 Sodium 135 L Potassium 4.1 Chloride 102 Carbon Dioxide 24 BUN 23 H Creatinine 0.84 Glucose 124 H Calcium 8.2 L - ABG Interpretation ABG results: PT/INR, D-dimer PT 10.4 Seconds (9.4-12.1) 04/28/16 14:00 Consult Discharge Plan - Plan Referrals: Raphael Galan Jr, MD [Primary Care Provider] - <Osman Scott - Last Filed: 05/01/16 17:22> - Assessment and plan (1) Takotsubo cardiomyopathy Current Visit: Yes Status: Acute (2) NSTEMI (non-ST elevated myocardial infarction) Current Visit: Yes Status: Acute (3) Dementia Current Visit: Yes Status: Chronic Qualifiers: Dementia type: vascular dementia Dementia behavioral disturbance: without behavioral disturbance Qualified Code(s): F01.50 - Vascular dementia without behavioral disturbance (4) Atrial fibrillation Current Visit: No Status: Chronic Qualifiers: Atrial fibrillation type: chronic Qualified Code(s): I48.2 - Chronic atrial fibrillation (5) Hypothyroidism Current Visit: Yes Status: Chronic Qualifiers: Hypothyroidism type: unspecified Qualified Code(s): E03.9 - Hypothyroidism , unspecified (6) Hypertension Current Visit: Yes Status: Chronic Qualifiers: Hypertension type: essential hypertension Qualified Code(s): I10 - Essential (primary) hypertension - Constitutional Vitals: Temp Pulse Resp BP Pulse Ox 97.8 F 84 20 121/67 100 05/01/16 15:00 05/01/16 15:00 05/01/16 15:00 05/01/16 15:00 05/01/16 15:00 Internal Medicine: Result - Labs CBC & Chem 7: 05/01/16 05:24 05/01/16 05:24 Labs: Short CBC 05/01/16 Range/Units 05:24 WBC 7.7 (4.3-11.1) K/mcL Hgb 11.0 L D (11.5-15.4) g/dL Hct 33.6 L (35.3-44.9) % Plt Count 222 (140-400) K/mcL Neutrophils # 6.4 (1.6-8.9) K/mcL BMP 05/01/16 05:24 Sodium 135 L Potassium 4.1 Chloride 102 Carbon Dioxide 24 BUN 23 H Creatinine 0.84 Glucose 124 H Calcium 8.2 L - ABG Interpretation ABG results: PT/INR, D-dimer PT 10.4 Seconds (9.4-12.1) 04/28/16 14:00 - Attending Attestation I examined this patient and my medical decision-making was reviewed with the Resident Physician on 05/01/16. I agree with the documented findings, disposition and treatment plan as described except to the extent set forth below. Ms. Tinajero is currently admitted for acute NSTEMI, Takotsubo cardiomyopathy and recurrent falls. She remains moderate risk due to potential for worsening cardiac issues. Ms. Tinajero is sitting up in chair. She denies new complaints though still has pain in arm and leg from fall. Pain medication helps. No dyspnea. Bowels OK. Exam Alert. Comfortable Heart irreg Lungs diminished No edema I/P 1. Acute NSTEMI 2. Takotsubo cardiomyopathy 3. Dementia Further diagnoses and plan as above.
[2016-05-02] MEDS: *HR* Heparin 5,000 UNIT/ML VIAL SQ SCH ×4 (00:05→22:40)
[2016-05-02 05:19] LABS: Basophils % 0.1 %; Eosinophils # 0.1 K/mcL (0.0-0.6); Eosinophils % 1.3 %; Hematocrit 34.7 % (35.3-44.9); Hemoglobin 11.3 g/dL (11.5-15.4); Immature Granulocytes % 1.3 % (0-4); Lymphocytes # 0.4 K/mcL (0.6-4.6); Lymphocytes % 4.8 %; Mean Corpuscular HGB Conc 32.6 g/dL (31.6-35.5); Mean Corpuscular Hemoglobin 27.6 pg (28.0-33.3); Mean Corpuscular Volume 84.8 fL (83.0-100.0); Mean Platelet Volume 9.7 fL (9.4-12.4); Monocytes # 0.7 K/mcL (0.0-1.3); Monocytes % 8.6 %; Neutrophils # 7.1 K/mcL (1.6-8.9); Platelet Count 258 K/mcL (140-400); Red Blood Count 4.09 M/mcL (3.82-4.97); Red Cell Distribution Width 14.5 % (11.5-14.5); Segmented Neutrophils % 83.9 %
[2016-05-02 05:37] LABS: Alanine Aminotransferase 65 Units/L (0-55); Albumin 2.6 g/dL (3.5-5.0); Albumin/Globulin Ratio 0.7 (1.1-2.2); Alkaline Phosphatase 83 Units/L (38-126); BUN/Creatinine Ratio 29 (6-26); Bilirubin,Total 0.5 mg/dL (0.2-1.2); Blood Urea Nitrogen 26 mg/dL (7-20); Calcium 8.9 mg/dL (8.6-10.8); Carbon Dioxide 20 mEq/L (19-29); Chloride 103 mEq/L (98-109); Creatine Kinase 1752 Units/L (29-168); Globulin 3.9 g/dL (2.4-3.5); Glucose 113 mg/dL (70-99); Osmolality,Calculated 286 (280-300); Sodium 135 mEq/L (136-145); Total Protein 6.5 g/dL (6.0-8.3); eGFR For African Americans > 60 (> 60); eGFR For Non-African Americans 59 (> 60)
[2016-05-02 05:39] LABS: Aspartate Amino Transferase 73 Units/L (5-34); Potassium 5.5 mEq/L (3.5-4.5)
[2016-05-02] MEDS: *HR* Morphine 2 MG/ML SYRINGE IVP PRN ×2 (05:47→20:40)
[2016-05-02] MEDS: *HR* OxyCODONE/APAP 5/325 TABLET PO PRN ×3 (07:59→22:40)
[2016-05-02] MEDS: Aspirin 81 MG TAB.CHEW PO SCH (08:00)
[2016-05-02] MEDS: Metoprolol XL (24 HR) Succ 50 MG TAB.ER.24H PO SCH ×2 (08:01→20:40)
[2016-05-02] MEDS: Furosemide 40 MG TABLET PO SCH (08:01)
[2016-05-02] MEDS ORDERED: MOM Conc 10 ML UD.LIQ PO ONE (08:18)
[2016-05-02] MEDS: Tiotropium 18 MCG inhalation IH SCH (11:29)
[2016-05-02] MEDS: Budesonide/Formoterol 160/4.5 MDI IH SCH ×2 (11:30→20:21)
[2016-05-02] MEDS: 0.9 % Sodium Chloride 1,000 ML IVC SCH (12:33)
--- NOTE | 2016-05-02 14:44 | Internal Med Progress Note ---
Date of Encounter: 05/02/16 Time of Encounter: 08:00 - Assessment and plan (1) Hyperkalemia Current Visit: Yes Status: Acute Assessment and plan: Hold K supplement and recheck tomorrow. (2) Right shoulder pain Current Visit: Yes Status: Acute Assessment and plan: Related to prior fall. CT today shows no fracture. Hold d/c today. Venous duplex pending. Will most likely need ortho follow up outpatient. Concerned she may develop frozen shoulder. Qualifiers: Chronicity: acute Qualified Code(s): M25.511 - Pain in right shoulder (3) Rhabdomyolysis Current Visit: Yes Status: Acute Assessment and plan: CPK decreasing over time. Will give small amount of IV fluid today as her potassium has increased. Recheck lab in AM. Qualifiers: Rhabdomyolysis type: traumatic Encounter type: subsequent encounter Qualified Code(s): T79.6XXD - Traumatic ischemia of muscle, subsequent encounter (4) Fall Current Visit: Yes Status: Acute Assessment and plan: Patient's mental status is improving, heart rate is normalized, leukocytosis resolving with current antibiotic therapy. Elevated by physical therapy and recommended SNF or ECF. This has been discussed with the patient and her daughter were in agreement. Patient is an elderly female who is supposed to be using her walker or cane at home but has poor compliance. She has underlying dementia and currently lives alone with frequent checkup by family members. She was found down after a mechanical fall in her bathroom for unknown length of time. Patient is found to have atrial fibrillation with RVR, urinary tract infection and NSTEMI. Family member states that the patient has had increased confusion over the last week. Her fall is likely secondary to urinary tract infection and associated atrial fibrillation with RVR and NSTEMI. - Multiple x-ray studies were reviewed without knee findings of osseous fractures. Plan: -Patient currently on fall precautions - Plan for ECF postdischarge Qualifiers: Encounter type: subsequent encounter Qualified Code(s): W19.XXXD - Unspecified fall, subsequent encounter (5) Takotsubo cardiomyopathy Current Visit: Yes Status: Acute Assessment and plan: Overall she seems to be doing better clinically. Her cardiac medications have been adjusted. Continue supportive care. (6) NSTEMI (non-ST elevated myocardial infarction) Current Visit: Yes Status: Acute Assessment and plan: Pt is s/p cardiac catheterization and found to have Takosutbo. Continue supportive cardiac care. (7) Dementia Current Visit: Yes Status: Chronic Assessment and plan: Mental status seems to be better today. No change for now. Qualifiers: Dementia type: vascular dementia Dementia behavioral disturbance: without behavioral disturbance Qualified Code(s): F01.50 - Vascular dementia without behavioral disturbance (8) Atrial fibrillation Current Visit: No Status: Chronic Assessment and plan: No issues currently. Qualifiers: Atrial fibrillation type: chronic Qualified Code(s): I48.2 - Chronic atrial fibrillation (9) Hypothyroidism Current Visit: Yes Status: Chronic Assessment and plan: Continue supplement. Qualifiers: Hypothyroidism type: acquired Qualified Code(s): E03.9 - Hypothyroidism, unspecified (10) Hypertension Current Visit: Yes Status: Chronic Assessment and plan: Continue current medications. Qualifiers: Hypertension type: essential hypertension Qualified Code(s): I10 - Essential (primary) hypertension - Subjective Interval history: Ms. Tinajero is currently admitted for acute NSTEMI and multiple falls. She remains moderate to high risk due to cardiac status as well as electrolyte abnormalities and issues with pain. Ms Tinajero was having a lot of pain in her arm last night and xray ordered. She continues to have significant pain especially with movement. No chest pain or dyspnea. No cough. No GI symptoms. Has been accepted at SNF. Xray questions humeral head area - CT ordered and negative for fracture. Significant arthritis present. - Constitutional Vitals: Temp Pulse Resp BP Pulse Ox 97.8 F 78 16 109/75 98 05/02/16 11:34 05/02/16 11:34 05/02/16 11:34 05/02/16 11:34 05/02/16 12:54 General appearance: Present: A&O X 3, pleasant Exam: Significant distress with movement of R arm. - Head Head exam: Present: normocephalic - Eye Eye exam: Present: conjuntiva pink - ENT ENT exam: Present: mucous membranes moist - Respiratory Respiratory exam: Present: CTAB. Absent: rhonchi, wheezes - Cardiovascular Cardiovascular exam: Present: irregular rhythm. Absent: tachycardia - GI/Abdominal GI/Abdominal exam: Present: soft. Absent: tenderness - Extremities Exam Extremities exam: Present: tenderness, warm. Absent: pedal edema Additional comments: RUE and RLE with significant ecchymosis. Tender to palpation, especially shoulder on R. Decreased movement due to pain. - Neurological Exam Neurological exam: Present: alert, oriented X3 - Skin Skin exam: Present: dry, warm. Absent: rash Internal Medicine: Result - Labs CBC & Chem 7: 05/02/16 05:02 05/02/16 05:02 Labs: Short CBC 05/02/16 Range/Units 05:02 WBC 8.5 (4.3-11.1) K/mcL Hgb 11.3 L (11.5-15.4) g/dL Hct 34.7 L (35.3-44.9) % Plt Count 258 (140-400) K/mcL Neutrophils # 7.1 (1.6-8.9) K/mcL BMP 05/02/16 05:02 Sodium 135 L Potassium 5.5 H D Chloride 103 Carbon Dioxide 20 BUN 26 H Creatinine 0.91 Glucose 113 H Calcium 8.9 Liver Function 05/02/16 Range/Units 05:02 Total Bilirubin 0.5 (0.2-1.2) mg/dL AST 73 H (5-34) Units/L ALT 65 H (0-55) Units/L Alkaline Phosphatase 83 (38-126) Units/L Albumin 2.6 L (3.5-5.0) g/dL - ABG Interpretation ABG results: PT/INR, D-dimer PT 10.4 Seconds (9.4-12.1) 04/28/16 14:00 - Impressions Impressions Humerus X-Ray 05/02/16 01:16 IMPRESSION: Osteopenia. Cortical irregularity along the inferomedial aspect of the humeral head may be related to osteophyte. This would be better evaluated with dedicated radiograph of the shoulder appear D/ / Eileen Coronado MD / Eileen Coronado MD Interpreting Provider: Eileen Coronado MD Shoulder CT 05/02/16 08:00 IMPRESSION: 1. No acute osseous abnormality of the right shoulder. 2. Severe degenerative arthrosis of the right glenohumeral joint with intra-articular loose bodies the largest of which is in the subcoracoid recess. 3. Mild degenerative arthrosis of the right AC joint. 4. If clinically concerned about rotator cuff pathology, MRI could be performed for further evaluation. D/ / Harry Wolff MD / Harry Wolff MD Interpreting Provider: Harry Wolff MD Consult Discharge Plan - Plan Referrals: Raphael Galan Jr, MD [Primary Care Provider] -
[2016-05-02] MEDS ORDERED: Ondansetron ODT 4 MG TAB.RAPDIS SL PRN (18:17)
[2016-05-03] MEDS: *HR* Morphine 2 MG/ML SYRINGE IVP PRN (02:39)
[2016-05-03] MEDS: 0.9 % Sodium Chloride 1,000 ML IVC SCH (06:13)
[2016-05-03] MEDS: *HR* Heparin 5,000 UNIT/ML VIAL SQ SCH (06:14)
[2016-05-03 06:29] LABS: Alanine Aminotransferase 58 Units/L (0-55); Albumin 2.2 g/dL (3.5-5.0); Albumin/Globulin Ratio 0.8 (1.1-2.2); Alkaline Phosphatase 77 Units/L (38-126); Aspartate Amino Transferase 51 Units/L (5-34); BUN/Creatinine Ratio 35 (6-26); Bilirubin,Total 0.6 mg/dL (0.2-1.2); Blood Urea Nitrogen 25 mg/dL (7-20); Calcium 8.1 mg/dL (8.6-10.8); Carbon Dioxide 24 mEq/L (19-29); Chloride 105 mEq/L (98-109); Creatine Kinase 814 Units/L (29-168); Globulin 2.9 g/dL (2.4-3.5); Glucose 110 mg/dL (70-99); Magnesium 2.2 mg/dL (1.6-2.6); Osmolality,Calculated 289 (280-300); Phosphorous 2.7 mg/dL (2.3-4.7); Sodium 137 mEq/L (136-145); eGFR For African Americans > 60 (> 60); eGFR For Non-African Americans > 60 (> 60)
[2016-05-03 06:38] LABS: Potassium 4.2 mEq/L (3.5-4.5)
[2016-05-03 06:39] LABS: Total Protein 5.1 g/dL (6.0-8.3)
[2016-05-03 08:02] VITALS: BP 147/76
[2016-05-03] MEDS: Budesonide/Formoterol 160/4.5 MDI IH SCH (08:06)
[2016-05-03] MEDS: Tiotropium 18 MCG inhalation IH SCH (08:06)
--- NOTE | 2016-05-03 08:25 | Discharge Summary ---
Date of Encounter: 05/03/16 Time of Encounter: 08:25 - Discharge Diagnosis (1) Hyperkalemia Priority: Secondary Status: Acute (2) Right shoulder pain Priority: Secondary Status: Acute Qualifiers: Chronicity: acute Qualified Code(s): M25.511 - Pain in right shoulder (3) Rhabdomyolysis Priority: Primary Status: Acute Qualifiers: Rhabdomyolysis type: traumatic Encounter type: subsequent encounter Qualified Code(s): T79.6XXD - Traumatic ischemia of muscle, subsequent encounter (4) Fall Priority: Secondary Status: Acute Qualifiers: Encounter type: subsequent encounter Qualified Code(s): W19.XXXD - Unspecified fall, subsequent encounter (5) Takotsubo cardiomyopathy Priority: Primary Status: Acute (6) NSTEMI (non-ST elevated myocardial infarction) Priority: Primary Status: Acute (7) Dementia Priority: Secondary Status: Chronic Qualifiers: Dementia type: vascular dementia Dementia behavioral disturbance: without behavioral disturbance Qualified Code(s): F01.50 - Vascular dementia without behavioral disturbance (8) Atrial fibrillation Priority: Secondary Status: Chronic Qualifiers: Atrial fibrillation type: chronic Qualified Code(s): I48.2 - Chronic atrial fibrillation (9) Hypothyroidism Priority: Secondary Status: Chronic Qualifiers: Hypothyroidism type: acquired Qualified Code(s): E03.9 - Hypothyroidism, unspecified (10) Hypertension Priority: Secondary Status: Chronic Qualifiers: Hypertension type: essential hypertension Qualified Code(s): I10 - Essential (primary) hypertension - Discharge Medications Prescriptions: OxyCODONE/APAP 5/325 [Percocet 5/325 MG] 1 each PO Q6HR PRN #7 tablet PRN Reason: Pain Home Medications: Albuterol Sulfate [Proair Hfa] 2 puff IH Q4H PRN #0 12/02/14 [History] Aspirin 81 mg PO DAILY #0 12/02/14 [History] Citalopram [CeleXA] 20 mg PO DAILY #0 12/02/14 [History] Fluticasone/Salmeterol [Advair 500-50 Diskus] 1 puff IH BID #0 12/02/14 [ History] Guaifenesin [Mucinex] 600 mg PO BID PRN #0 12/02/14 [History] Levothyroxine [Synthroid] 50 mcg PO DAILY #0 12/02/14 [History] Montelukast [Singulair] 10 mg PO DAILY #0 12/02/14 [History] Omeprazole [PriLOSEC] 40 mg PO DAILY #0 12/02/14 [History] Tiotropium [Spiriva] 1 cap IH DAILY #0 12/02/14 [History] Alprazolam [Xanax 0.5 MG Tablet] 0.5 mg PO TID PRN #30 tablet 12/12/14 [Rx] OxyCODONE/APAP 5/325 [Percocet 5/325] 1 tab PO Q4HR PRN 04/28/16 [History] PredniSONE 10 mg PO AD 04/28/16 [History] Furosemide [Lasix] 20 mg PO DAILY tablet 05/03/16 [Rx] Lisinopril [Zestril] 2.5 mg PO DAILY tablet 05/03/16 [Rx] Metoprolol XL (24 HR) Succ [Toprol Xl] 50 mg PO BID tab.er.24h 05/03/16 [Rx] OxyCODONE/APAP 5/325 [Percocet 5/325 MG] 1 each PO Q6HR PRN #7 tablet 05/03/16 [ Rx] Allergies/Adverse Reactions: Allergies Penicillins Adverse Reaction (Verified 12/01/14 20:28) See Comments Procedures/tests Complete & Pending: Procedures Performed prior 72 hours Category Date Time Status CT shoulder RT wo con [CT] Routine Cat Scan 05/02/16 08:00 Completed CL Cardiac Catheterization [CL] Routine Electrotyper Apprentice 04/30/16 09:07 Completed Venous Doppler [EV venous imaging UE RT] Routine Y 05/02/16 08:17 Completed Date of admission: 04/28/16 17:10 Primary care physician: Raphael Galan Jr, MD Consults: 04/28/16 18:13 Consult to Nutrition [CONS] Routine Comment: Consulting Provider: NUTRITION Reason for Dietary Consult: Other Other:: decrease appetite Consult to [employer] Laborer [CONS] Routine Reason for SW Consult: lives alone, fall at home 04/30/16 09:07 Consult to Cardiac Rehabilitation-Phase1 [CONS] Routine Comment: Reason for Consult: NSTEMI Call Completed: No Discharging clinician: Osman Scott Anticipated date of discharge: 05/03/16 - Patient Status Disposition: Transfer SNF Condition: Fair Functional capacity at discharge: uses cane/walker Overall status at discharge: patient is progressing back to baseline - Discharge Instructions Follow Up With: Raphael Galan Jr, MD [Primary Care Provider] - Additional Instructions: Please schedule outpatient appt with [facility] for R shoulder pain. - Diet and Activity Activity: as per physical therapy Diet: low fat, low cholesterol, low salt diet Hospital course: Ms. Tinajero is a 85 year old female with history of dementia, COPD and a fib (no anticoagulation due to falls) brought to ED due to mental status change. Symptoms had been present 3-4 days. She was being treated for UTI as outpatient. The morning of admission she had a fall. In ED she was found to have NSTEMI and rapid atrial fibrillation and subsequently admitted. Ms. Tinajero was admitted to [facility]. Meds were adjusted for rate control. She was placed on heparin drip. Initially she was not going to have cardiac cath but on 04/30 she underwent cath and medical management was recommended. No stent was placed. She was placed on IV abx for UTI. Initially she also had CPK greater than 9000 consistent with acute rhabdomyolysis from her fall. She had normal renal function and due to hx of CHF and recent [place], fluids were initially not given. She had gradual decrease in CPK without fluids. Meds were adjusted for CAD and a fib rate control. She had slow but steady improvement in her mental status. Her other big issue was pain in her R arm and leg from falling. Xrays were negative for fracture but there was a lot of arthritis. She will need to have orthopedic follow up as she is at risk for frozen shoulder. On 05/02 her K was elevated (on supplement and Lisinopril new). IV fluids were started at a slow rate and CPK was below 1000 on 05/03. IV fluids were stopped due to slight congestion in her chest. On her vitals were stable. She had good appetite and no new issues. At that time she was felt stable for d/c to SNF for continued rehab. - Time Spent with Patient Total time spent providing and/or coordinating discharge services: 41min - Constitutional Vitals: Temp Pulse Resp BP Pulse Ox 97.6 F 87 16 147/76 100 05/03/16 07:00 05/03/16 07:00 05/03/16 07:00 05/03/16 07:00 05/03/16 07:00 General appearance: Present: A&O X 3, pleasant - Head Head exam: Present: normocephalic - Eye Eye exam: Present: normal appearance, conjuntiva pink - ENT ENT exam: Present: mucous membranes moist - Respiratory Respiratory exam: Present: CTAB. Absent: rhonchi, wheezes, tachypnea - Cardiovascular Cardiovascular exam: Present: irregular rhythm. Absent: tachycardia - GI/Abdominal GI/Abdominal exam: Present: soft. Absent: mass, tenderness - Extremities Exam Extremities exam: Absent: warm Additional comments: Ecchymosis and tenderness R arm and leg. Decreased ROM due to pain. - Neurological Exam Neurological exam: Present: alert, oriented X3 - Psychiatric Psychiatric exam: Present: normal affect, normal mood - Skin Skin exam: Present: warm. Absent: rash
[2016-05-03] MEDS: Aspirin 81 MG TAB.CHEW PO SCH (09:10)
[2016-05-03] MEDS: *HR* OxyCODONE/APAP 5/325 TABLET PO PRN ×2 (09:11→13:51)
[2016-05-03] MEDS: Metoprolol XL (24 HR) Succ 50 MG TAB.ER.24H PO SCH (09:12)
[2016-05-03] MEDS: Furosemide 40 MG TABLET PO SCH (09:14)
--- NOTE | 2016-05-03 09:18 | Physician Discharge Referral ---
ExtendedCare Referral Info Provider in Charge: Osman Scott DO Provider in Charge after Transfer: Other (Physician at facility or PCP) Institutional Level of Care: Skilled - Diagnosis (1) Hyperkalemia Status: Acute (2) Right shoulder pain Status: Acute (3) Rhabdomyolysis Status: Acute (4) Fall Status: Acute (5) Takotsubo cardiomyopathy Status: Acute (6) NSTEMI (non-ST elevated myocardial infarction) Status: Acute (7) Dementia Status: Chronic (8) Atrial fibrillation Status: Chronic (9) Hypothyroidism Status: Chronic (10) Hypertension Status: Chronic - Transfer Medications Prescriptions: OxyCODONE/APAP 5/325 [Percocet 5/325 MG] 1 each PO Q6HR PRN #7 tablet PRN Reason: Pain Home Medications: Albuterol Sulfate [Proair Hfa] 2 puff IH Q4H PRN #0 12/02/14 [History] Aspirin 81 mg PO DAILY #0 12/02/14 [History] Citalopram [CeleXA] 20 mg PO DAILY #0 12/02/14 [History] Fluticasone/Salmeterol [Advair 500-50 Diskus] 1 puff IH BID #0 12/02/14 [ History] Guaifenesin [Mucinex] 600 mg PO BID PRN #0 12/02/14 [History] Levothyroxine [Synthroid] 50 mcg PO DAILY #0 12/02/14 [History] Montelukast [Singulair] 10 mg PO DAILY #0 12/02/14 [History] Omeprazole [PriLOSEC] 40 mg PO DAILY #0 12/02/14 [History] Tiotropium [Spiriva] 1 cap IH DAILY #0 12/02/14 [History] Alprazolam [Xanax 0.5 MG Tablet] 0.5 mg PO TID PRN #30 tablet 12/12/14 [Rx] OxyCODONE/APAP 5/325 [Percocet 5/325] 1 tab PO Q4HR PRN 04/28/16 [History] PredniSONE 10 mg PO AD 04/28/16 [History] Furosemide [Lasix] 20 mg PO DAILY tablet 05/03/16 [Rx] Lisinopril [Zestril] 2.5 mg PO DAILY tablet 05/03/16 [Rx] Metoprolol XL (24 HR) Succ [Toprol Xl] 50 mg PO BID tab.er.24h 05/03/16 [Rx] OxyCODONE/APAP 5/325 [Percocet 5/325 MG] 1 each PO Q6HR PRN #7 tablet 05/03/16 [ Rx] Allergies/Adverse Reactions: Allergies Penicillins Adverse Reaction (Verified 12/01/14 20:28) See Comments - Respiratory Orders Other Smoking Cessation: Smoking cessation has been advised. For more information, call the [place] Tobacco Quit Line at 4-809-GBQF-NOW. - Lab Orders Lab Orders: 2 Step Mantoux Test per State regulation - Ancillary Orders May use pressure relief devices daily prn, May consult with Dentist, Oyster Sorter, Manager Utilities PRN - Advance Directives Code Status: DNR-Arrest - History and Physical History/Physical reviewed & approved w/add comments: More alert now. Otherwise no change. - Mobility Orders Ambulate - Rehabiliation Orders Rehab Orders: Evaluation for Physical Therapy, Evaluation for Occupational Therapy - Treatments Skin tear care topically daily PRN per policy, May check for fecal impaction rectally daily PRN, Fleet enema rectally every other day PRN cleansing purposes - Diet Orders Cardiac CERTIFICATION: I certify that the transfer of the above named patient to an Extended Care Facility is necessary for the continuing treatment of the diagnosis listed. The above information is true and accurate reflection of patient's current condition. Confidential - Redisclosure prohibited without a patient's written consent.
--- NOTE | 2016-05-04 06:43 | Venous Imaging Report ---
UE Venous Duplex Patient Name:Rubi Tinajero Order Number:[id number] Procedure Date:05/02/2016 Date:1930ge:85 yrs Gender:Female Location:[facility] Room #: [id number] Volleyball Commentator:Alfonso Gilbert RDCS Referring MD:Osman Scott DO laundry marker supervisor:None Reading MD:Brennan Chapman MD Primary Indications:Swelling of limb Secondary Indications: Impressions: Normal right upper extremity deep venous exam. Acute superficial venous thrombosis is present in the right basilic vein. Normal contralateral subclavian vein. Recommendations: VALERI Calderón given preliminary results. Test completed on 05/02/2016 at 2:57:10 pm. Critical findings reported to VALERI Mills in person at 2:57:26 pm on 05/02/2016 by Alfonso Gilbert RDCS. Findings Venous Duplex Results: Right: Venous imaging of the upper extremity reveals full patency and normal vessel compressibility of the right jugular, right subclavian, right brachial, right cephalic, right radial and right ulnar. Doppler signals in the evaluated veins were normal. There is an acute occlusive thrombus seen in the right basilic. It demonstrates an incompressible vein. Flow was absent and it did not augment. Axillary not visualized. Left: Subclavian not visualized. Prior Study: No prior study available for comparison. Upper Extremity Venous Duplex Side Vein Compress Spontaneous Flow Augment Right Jugular Normal Yes Phasic Yes Right Subclavian Normal Yes Phasic Yes Right Brachial Normal Yes Phasic Yes Right Cephalic Normal Yes Phasic Yes Right Basilic None no Absent no Right Radial Normal Yes Phasic Yes Right Ulnar Normal Yes Phasic Yes Updated by Brennan Chapman MD on 05/04/2016 6:38:51 AM electronically signed on 05/04/2016 6:39:06 AM with status of Final
== END 2016-05-03 14:10 | DRG 281 ==
LOC: EMEROO 11:48 → 2NENU 11:48 → SUATTDRO 17:10 → 2NENU 04-29 22:06
PROVIDERS: ADMIT Internal Medicine; ATTEND Internal Medicine